=== PATIENT | female | born 1980 | race Caucasian/White ===

== ENCOUNTER 2016-09-13 12:54 | Emergency (ER) | payer MEDICAID ==
[~2016-09-13] VITALS: Ht 175.3 cm; Wt 124.4 kg
[~2016-09-13 12:54] MED LIST: ALPR1TAB PO; AMIT25TA9 PO; BACL10TA PO; CARB200T5 PO; CLON0.1T PO; ESTR1PAT77 TD; GABA-354 PO; IBUP-1724 PO; INSU100I3 SQ; INSU300I SQ; LIDO30CR23 TOP; LISI10TA7 PO; NAPR500T3 PO; OMEP40CA52 PO; OXYC-533 PO; PRED10TA PO; PREG75CA PO; QUET400T34 PO; RIZA10TA24 PO; SPIR25TA4 PO; TRAZ-173 PO; VENL150C42 PO
[2016-09-13 13:00] VITALS: Ht 175.3 cm; Wt 124.4 kg
--- OUTSIDE RECORDS SUMMARY | 2016-09-13 13:01 | XMS REPORT | Continuity of Care Document ---
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 Name Role Phone Rl Ramachandran PP Unavailable Payers Payer name Insurance type Covered democrat ID Authorization(s) Unknown Problems Condition Effective Dates (start - stop) Clinical Status Sinusitis, Acute - *Acute Bronchitis, Acute - *Acute GERD - *Chronic Depression - *Chronic Obesity - *Chronic GERD - Chronic Depression - Chronic Obesity - Chronic Diabetes Mellitus Type 2, Uncomplicated - *Chronic Diabetes Mellitus Type 2, Uncomplicated - *Poor control Issue of repeat prescriptions - *Chronic Diabetes Mellitus Type 2, Uncomplicated - *Poor control Fever - *Acute Contact dermatitis and other eczema, unspecified cause - *Acute Abdominal pain, right lower quadrant - *Acute Pharyngitis, Acute - *Acute Elevated glucose - *Chronic Elevated LFTs - *Chronic Influenza Vaccine - NEED FOR PROPHYLACTIC VACCINATION WITH COMBINED [id number] ( DTP) (DTAP) VACCINE - Carpal Tunnel Syndrome - *Chronic Pain in limb - *Chronic Wrist pain - *Chronic Hand pain, right - *Chronic Abdominal pain, generalized - Improved GERD - *Chronic Depression - *Chronic Obesity - *Chronic Chronic ulcer of unspecified site - *Chronic GERD - Chronic Depression - Chronic Obesity - Chronic Fatty liver - *Chronic Abdominal pain, right lower quadrant - *Acute Thrush - *Acute Obesity - *Chronic Nausea And Vomiting - *Acute Abdominal pain, right lower quadrant - *Acute Abdominal pain, unspecified - *Chronic Pre-diabetes - *Chronic Depression - *Chronic Other chronic nonalcoholic liver disease - *Chronic GERD - *Chronic GERD - Chronic Anxiety - *Chronic Pharyngitis, Acute - *Acute Thrush - *Acute Steatohepatitis - *Chronic Sprain of wrist, unspecified site - *Acute Depressive disorder, not elsewhere classified - *Chronic Chest wall pain - *Symptomatic Diabetes Mellitus Type 2, Uncomplicated - *Chronic GERD - *Chronic Obesity - *Chronic Chronic ulcer of unspecified site - *Chronic Other abnormal blood chemistry - Asymptomatic Candidiasis of vulva and vagina - *Symptomatic Abnormal x-ray of lung - Asymptomatic Wrist pain - *Symptomatic Depression - Chronic GERD - Chronic Obesity - Chronic Chronic ulcer of unspecified site - Chronic CLUSTER HEADACHE SYN NOS - Chronic Sprain of unspecified site of wrist - *Acute Mastitis - *Acute Depression - *Chronic Obesity - *Chronic Fatty liver disease, nonalcoholic - *Chronic Sleep Apnea - *Chronic Abdominal pain, generalized - *Chronic Family History Family Member Diagnosis Age At Onset Status Brother (Unknown) Diabetes Yes Mother (Unknown) Diabetes Yes Father (Unknown) Cancer -lung Yes Maternal grandfather (Unknown) Diabetes Yes Social History Social History Element Description Quantity alcohol Allergies, Adverse Reactions, Alerts Substance Reaction Severity Status DOXYCYCLINE Unknown SULFANILAMIDE Unknown CODEINE PHOSPHATE BREATHING DIFFICULTY Unknown SULFAMETHOXAZOLE HIVES RASH ITCHING Unknown DOXYCYCLINE HYCLATE HIVES Unknown CLINDAMYCIN HCL Unknown TRIMETHOPRIM HIVES RASH ITCHING Unknown Medications Medication Instructions Dosage Effective Dates (start - stop) Status clonidine 0.1 mg tablet take 1 tablet (0.1MG) by oral route 2 times every day 0.1 MG - No Longer Active Diflucan 150 mg tablet take 1 tablet (150MG) by oral route once 150 MG - No Longer Active Ceftin 500 mg tablet take 1 tablet (500MG) by oral route every 12 hours 500 MG - No Longer Active Accu-Chek Suzette Plus Meter Test daily fasting or 2 hours after meals dx 250.00 - Active Accu-Chek Suzette Plus strips Test daily fasting or 2 hours after meals dx 250.00 - Active Accu-Chek FastClix kit Test daily fasting or 2 hours after meals Dx 250.00 - Active Accu-Chek FastClix Test daily or 2 hours after meals dx 250.00 2012 - Active trazodone 50 mg tablet Take 2 tablets by mouth at bedtime. - Active Xanax 1 mg tablet take 1 tablet (1MG) by oral route every day as needed 1 MG - Active omeprazole 40 mg capsule,delayed release take 1 capsule (40MG) by oral route every day at bedtime 40 MG - Active clonidine 0.1 mg tablet take 1 tablet (0.1MG) by oral route every day 0.1 MG - Active Seroquel XR 400 mg tablet,extended release take 1 tablet (400MG) by oral route every day in the evening without food or with a light meal 400 MG - Active glimepiride 4 mg tablet take 1 tablet (4MG) by oral route every day 4 MG - Active Effexor XR 150 mg capsule,extended release take 1 capsule (150MG) by oral route every day 150 MG - Active tramadol 50 mg tablet take 1 - 2 Tablet (50MG) by oral route every 6 hours as needed 50 MG - Active Immunizations Vaccine Date Status Comments Flu (split) (3 yrs or older) completed Tdap (Boostrix r) completed Results Test Name Date and Time Measure Units Reference Range Abnormal Flag Comments Unknown Vital Signs Date / Time: Height Weight Pulse Rate Blood Pressure Temperature /16:05:00 68.50 in 325.00 lbs 110 /min 138/92 mm[Hg] 98.6 F Procedures Procedure Date Unknown Encounters Encounter Location Date Patient Visit [facility] Patient Visit [facility] Patient Visit [facility] Patient Visit [facility] Patient Visit [facility] Patient Visit [facility] Patient Visit [facility] Patient Visit [facility] Patient Visit [facility] Patient Visit [facility] Patient Visit [facility] Patient Visit [facility] Patient Visit [facility] Patient Visit [facility] Patient Visit [facility] Patient Visit [facility] Patient Visit [facility] Patient Visit [facility] Patient Visit [facility] Patient Visit [facility] Patient Visit [facility] Patient Visit [facility] Patient Visit [facility] Patient Visit [facility] Ortho Patient Visit [facility] Patient Visit [facility] Patient Visit [facility] Patient Visit [facility] Patient Visit [facility] Advance Directives Directive Effective Date Unknown
--- OUTSIDE RECORDS SUMMARY | 2016-09-13 13:01 | XMS REPORT | Continuity of Care Document ---
Author Author [facility] Organization [facility] Address Unknown Phone Unavailable Care Team Providers Care Contingents Supervisor Name Role Phone JENNIFER GAY MD Primary Care Physician [phone] Insurance Providers Guarantor Nora Arita Address [address] [place] [address] Email [email or web address] Payer [facility] Community Plan Policy Number [id number] Subscriber's Name Nora Arita Relationship 18 Self Effective Date 15 Expiration Date 16 Advance Directives Directive Response Recorded Date/Time Advanced Directives Type None 01/05/16 1:35pm Chief Complaint and Reason for Visit Chief Complaint General Reason for Visit Trigeminal neuralgia Problems Active Problems Medical Problem Onset Date Status Abdominal adhesions Unknown Chronic Abdominal pain, left upper quadrant Unknown Acute Abdominal pain, left upper quadrant Unknown Acute Anxiety Unknown Acute Cervical paraspinal muscle spasm Unknown Acute Chest pain Unknown Acute Constipation Unknown Acute Diabetes type 2, uncontrolled Unknown Acute Dizziness Unknown Acute Dizziness Unknown Acute Elevated LFTs Unknown Acute Elevated liver enzymes Unknown Acute Esophageal spasm Unknown Acute Gastroesophageal reflux disease with ulceration Unknown Chronic Headache Unknown Acute Hyperglycemia Unknown Acute Hyperglycemia Unknown Acute Incisional abscess Unknown Acute Left lower quadrant pain Unknown Acute Lower extremity pain Unknown Acute Migraine headache Unknown Acute Right lower quadrant abdominal pain Unknown Acute Right upper quadrant abdominal pain Unknown Acute Sacral contusion Unknown Acute Sinusitis Unknown Acute Trapezius strain Unknown Acute Trigeminal neuralgia Unknown Past Problems Medical Problem Onset Date Bronchitis Unknown Costochondritis Unknown Left knee pain Unknown Swallowing difficulty Unknown Throat pain in adult Unknown Trigeminal neuralgia of right side of face Unknown Medications Current Home Medications Medication Dose Units Route Directions Days Qty Instructions Start Date Alprazolam (Xanax) 1 Mg Tablet 1 Mg Oral Daily as needed for Anxiety 12/20/12 Amitriptyline Hcl 25 Mg Tablet 25 Mg Oral Bedtime 11/12/15 Baclofen 10 Mg Tablet 10 Mg Oral Three Times A Day as needed for Spasms 05/30/15 Carbamazepine (Epitol) 200 Mg Tablet 400 Mg Oral Three Times A Day 12/18/15 Clonidine Hcl 0.1 Mg Tablet 0.1 Mg Oral Bedtime 05/30/15 Estradiol (Estradiol Tds 0.1 Mg/Day (W)) 1 Each Patch.tdwk 1 Patch Transderm Weekly 03/30/15 Gabapentin 400 Mg Capsule 400 Mg Oral Four Times Daily 01/05/16 Ibuprofen 200 Mg Tablet 400 Mg Oral Every 4 Hours as needed for Pain 11/12/15 Insulin Aspart (Novolog Flexpen) 1 Unit Pen 80 Unit Sub-Q Three Times Daily With Meals 01/10/15 Insulin Glargine,Hum.rec.anlog (Toujeo Solostar) 300 Unit/1 Ml Insuln.pen 120 Unit Sub-Q Bedtime 05/30/15 Lidocaine/Prilocaine (Lidocaine-Prilocaine Cream) 30 Gm Cream..g. 1 Applic Topically As Needed 01/05/16 Lisinopril 10 Mg Tablet 10 Mg Oral Bedtime 02/07/15 Naproxen 500 Mg Tablet 500 Mg Oral Daily as needed for Pain 09/30 Omeprazole 40 Mg Capsule.dr 40 Mg Oral Bedtime 04/06/15 Oxycodone Hcl/Acetaminophen (Oxycodone-Acetaminophen 10-325) 10-325 Tablet 1- 2 Tab Oral Every 6 Hours as needed for Pain 01/05/16 Prednisone 10 Mg Tablet 10 Mg Oral Daily 12/31/15 Pregabalin (Lyrica) 75 Mg Capsule 225 Mg Oral Bedtime 02/07/15 Quetiapine Fumarate 400 Mg Tablet 400 Mg Oral Bedtime 06/05/14 Rizatriptan Benzoate (Maxalt) 10 Mg Tablet 10 Mg Oral As Needed 10/01/15 Spironolactone 25 Mg Tablet 25 Mg Oral Bedtime 06/05/14 Trazodone Hcl 100 Mg Tablet 300 Mg Oral Bedtime 04/06/15 Venlafaxine Hcl (Effexor Xr) 150 Mg Cap.sr.24h 300 Mg Oral Bedtime 12/20/12 Past Home Medications Medication Directions Ordered Status Alprazolam (Xanax) 0.5 Mg Tablet, 0.5 Mg Oral As Needed 11/07/09 Discontinued Amitriptyline Hcl 50 Mg Tablet, 50 Mg Oral Bedtime 04/19/11 Discontinued Citalopram Hydrobromide (Celexa) 40 Mg Tablet, 40 Mg Oral Bedtime 11/07/09 Discontinued Insulin Aspart (Novolog Flexpen) 1 Unit Pen, 8 Unit Sub-Q Three Times Daily With Meals 06/05/14 Discontinued Insulin Glargine,Hum.rec.anlog (Lantus) 100 Unit/Ml Inj, 45 Unit Sub-Q Bedtime 06/05/14 Discontinued Lisinopril 10 Mg Tablet, Unknown Dose Oral Daily 09/09/14 Discontinued Oxycodone Hcl/Acetaminophen (Percocet 5-325 Mg Tablet) 1 Each Tablet, 1-2 Tab Oral Every 4 Hours as needed for Pain 09/09/14 Discontinued Pantoprazole Sodium (Protonix) 40 Mg Tablet.dr, 40 Mg Oral Before Breakfast 09/09/14 Discontinued Quetiapine Fumarate (Seroquel) 25 Mg Tablet, 25 Mg Oral Bedtime 11/07/09 Discontinued Sucralfate 1 Gm Tablet, 1 Gm Oral Before Meals And At Bedtime 09/09/14 Discontinued Trazodone Hcl (Desyrel) 50 Mg Tablet, 50 Mg Oral Daily 07/10/11 Discontinued Social History Social History Problem Response Recorded Date/Time Onset Date Status Hx Substance Use No 01/05/2016 1:35pm Not Applicable Not Applicable Hx Alcohol Use No 01/05/2016 1:35pm Not Applicable Not Applicable Has the pt used tobacco in the last 12 months Yes 02/11/2015 6:20am Not Applicable Not Applicable Tobacco Usage smoke 05/30/2015 1:02pm Not Applicable Not Applicable Query Response Start Date Stop Date Smoking Status Current every day smoker Hospital Discharge Instructions No hospital discharge instructions. Plan of Care Discharge Date 01/05/16 3:37pm Disposition 01 DISCHARGED HOME, SELF-CARE Condition at Discharge Stable Instructions/Education Provided DI for Trigeminal Neuralgia Prescriptions See Medication Section Referrals JENNIFER GAY MD Address: [address] [place] [phone] ANGELO COWAN MD Address: [address] [place] [phone] Additional Instructions/Education Follow up with Dr. Barrientos on Tuesday as scheduled. Continue with the Percocet as prescribed. Return to ER with any new issues/concerns. Care Plan and Goals Physician Care Plan Problem:Trigeminal Neuralgia Goal: Follow up with primary care provider Instructions: Take medications and follow care plan as discussed/written Functional Status No functional status results. Allergies, Adverse Reactions, Alerts Allergen Type Severity Reaction Status Last Updated Sulfa (Sulfonamide Antibiotics) Allergy Unknown HIVES Active 12/31/15 Codeine Allergy Unknown DIFFICULTY BREATHING Active 12/31/15 Doxycycline Allergy Unknown ITCHING/RASH Active 12/31/15 Metformin Allergy Unknown NAUSEA Active 12/31/15 Liraglutide Allergy Unknown NAUSEA Active 12/31/15 Immunizations Query Response on File Recorded Date/Time Hx Influenza Vaccination Y fall 201302/07/15 4:11pm Hx Pneumococcal Vaccination No 02/07/15 4:11pm Hx Influenza Vaccination Y fall 201302/07/15 4:11pm Hx Tetanus Diptheria Y UTD PER PATIENT 04/06/15 7:37pm DTaP Vaccine History 201201/05/16 1:35pm Influenza Vaccine Hx FALL 201401/05/16 1:35pm Pneumococcal PCV13 Vaccine Hx NONE 11/12/15 5:03pm Vital Signs Acute Vital Signs Vital Response Date/Time Temperature (Fahrenheit) 98.8 deg F (96.8 - 99.1) 01/05/2016 3:37pm Temperature (Calculated Celsius) 37.45901 degrees C (36.0 - 37.3) 01/05/2016 3:37pm Pulse Rate (adult) 99 bpm (60 - 100) 01/05/2016 3:37pm Respiratory Rate 16 breaths/min (10 - 20) 01/05/2016 3:37pm O2 Sat by Pulse Oximetry 95 % (90 - 100) 01/05/2016 3:37pm Blood Pressure 164/78 mm Hg 01/05/2016 3:37pm Height (Feet) 5 feet 01/05/2016 1:35pm Height (Inches) 8.00 inches 01/05/2016 1:35pm Weight (Kilograms) 124.700 kg 01/05/2016 1:35pm Body Mass Index (BMI) 41.0 01/05/2016 1:35pm Results Laboratory Results Test Name Result Units Flags Reference Collection Date/Time Result Date/ Time Comments Carbamazepine (Tegretol) Level 7.3 ug/mL 4.0-12.0 12/31/2015 5:51pm 12:53pm Carbamazepine performed at [facility] Reference Lab, [facility] [place] [address] Trust Vault Clerk Yanna Ybarra DO Procedures Procedure Status Date Provider(s) X-RAY EXAM OF KNEE 3 Completed 11/12/15 THER/PROPH/DIAG INJ SC/IM Completed 11/12/15 THER/PROPH/DIAG INJ SC/IM Completed 11/12/15 EMERGENCY DEPT VISIT Completed 11/12/15 795893"INJECTION, KETOROLAC TROMETHAMINE, PER 15 MG" Completed 11/12/15 378287"INJECTION, ORPHENADRINE CITRATE, UP TO 60 MG" Completed 11/12/15 MRI BRAIN STEM W/O & W/DYE Completed 12/08/15 GADAVIST 10ML SDV - Contrast,Gadavist 10ml Completed 12/08/15 THER/PROPH/DIAG INJ SC/IM Completed 12/18/15 EMERGENCY DEPT VISIT Completed 12/18/15 078352"INJECTION, HYDROMORPHONE, UP TO 4 MG" Completed 12/18/15 Encounters Encounter Location Arrival/Admit Date Discharge/Depart Date Attending Provider Registered Emergency Room [facility] 01/05/16 1:32pm TEJ MATSON MD Departed Emergency Room [facility] 12/31/15 4:15pm 12/31/15 6: 30pm MISA ALVAREZ DO Departed Emergency Room [facility] 12/18/15 4:24pm 12/18/15 5: 17pm MARIO SHEIKH MD Registered Clinic [facility] 12/08/15 2:57pm DUDLEY RANGEL MD Departed Emergency Room [facility] 11/12/15 4:43pm 11/12/15 6: 48pm MISA ALVAREZ DO Recent Diagnosis
--- OUTSIDE RECORDS SUMMARY | 2016-09-13 13:01 | XMS REPORT | Continuity of Care Document ---
Author Author [facility] Organization [facility] Address Unknown Phone Unavailable Allergies Medications Problems Date Dx Coded Attending Type Code Diagnosis Diagnosed By 03/20/2012 Ham Card MD Final 354.0 CARPAL TUNNEL SYNDROME 03/20/2012 Ham Card MD 719.43 JOINT PAIN-FOREARM Procedures Results Encounters ACCT No. Visit Date/Time Discharge Status Pt. Type Provider Facility Loc./Unit Complaint [id number] 03/20/2012 10:14:00 2011 23:59:59 CLS Outpatient Ham Card MD [facility]
--- OUTSIDE RECORDS SUMMARY | 2016-09-13 13:02 | XMS REPORT | Continuity of Care Document ---
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 Role Phone Rl Ramachandran PP Unavailable Payers Payer name Insurance type Covered constitution party ID Authorization(s) Unknown Problems Condition Effective Dates (start - stop) Clinical Status Abdominal pain, right lower quadrant - *Acute Thrush - *Acute Obesity - *Chronic Pharyngitis, Acute - *Acute Elevated glucose - *Chronic Elevated LFTs - *Chronic Influenza Vaccine - Fever - *Acute Contact dermatitis and other eczema, unspecified cause - *Acute Abdominal pain, right lower quadrant - *Acute NEED FOR PROPHYLACTIC VACCINATION WITH COMBINED [id number] ( DTP) (DTAP) VACCINE - Carpal Tunnel Syndrome - *Chronic Pain in limb - *Chronic Wrist pain - *Chronic Hand pain, right - *Chronic Abdominal pain, generalized - Improved GERD - *Chronic Depression - *Chronic Obesity - *Chronic Chronic ulcer of unspecified site - *Chronic GERD - Chronic Depression - Chronic Obesity - Chronic Fatty liver - *Chronic Nausea And Vomiting - *Acute [...] Depressive disorder, not elsewhere classified - *Chronic Wrist pain - *Symptomatic Depression - Chronic [...] Dosage Effective Dates (start - stop) Status Take one 3 times daily. - Active phentermine 37.5 mg tablet take 1 tablet (37.5MG) by oral route every day before breakfast 37.5 MG - Active Diflucan 200 mg tablet take 1 tablet (200MG) by oral route every day 200 MG - Active Accu-Chek Suzette Plus Meter Test daily fasting or 2 hours after meals dx 250.00 - Active Accu-Chek Suzette Plus strips Test daily fasting or 2 hours after meals dx 250.00 - Active Accu-Chek FastClix kit Test daily fasting or 2 hours after meals Dx 250.00 - Active Accu-Chek FastClix Test daily or 2 hours after meals dx 250.00 2012 - Active Effexor XR 150 mg capsule,extended release take 1 capsule (150MG) by oral route every day 150 MG - Active omeprazole 40 mg capsule,delayed release take 1 capsule (40MG) by oral route every day at bedtime 40 MG - Active Xanax 1 mg tablet take 1 tablet (1MG) by oral route every day as needed 1 MG - Active naproxen 500 mg tablet take 1 tablet (500MG) by oral route 2 times every day with food 500 MG - Active trazodone 50 mg tablet Take 2 tablets by mouth at bedtime. - Active tramadol 50 mg tablet take [...] Height Weight Pulse Rate Blood Pressure Temperature /15:04:00 69.00 in 322.00 lbs 96 /min 144/100 mm[Hg] 98.0 F Procedures Procedure Date Unknown Encounters Encounter Location Date Patient Visit [facility] Patient Visit [facility] Patient Visit [facility] Patient Visit [facility] Patient Visit [facility] Patient Visit [facility] Patient [facility] Patient Visit [facility] Patient Visit [facility] Patient [facility] Patient [facility] Patient Visit [facility] Patient [facility] Patient [facility] Patient [facility] Patient [facility] Patient Visit [facility] Patient Visit [facility] Patient Visit [facility] Patient Visit [facility] Ortho Patient Visit [facility] Patient Visit [facility] Patient Visit [facility] Patient Visit [facility] Patient Visit [facility] Advance Directives Directive Effective Date Unknown
--- OUTSIDE RECORDS SUMMARY | 2016-09-13 13:02 | XMS REPORT | Continuity of Care Document ---
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 Name Role Phone JENNIFER GAY MD Primary Care Physician [phone] Insurance Providers Guarantor Nora Arita [address] [place] [address] Email [email or web address] Payer [facility] Community Plan Policy Number [id number] Subscriber's Name Nora Arita Relationship 18 Self Effective Date 15 Expiration Date 15 Advance Directives Directive Response Recorded Date/Time Advanced Directives Type None 09/18/15 5:08pm Chief Complaint and Reason for Visit Chief Complaint Chest Pain Reason for Visit [id number] Bronchitis Problems Active Problems Medical Problem Onset Date [...] Sinusitis Unknown Acute Trapezius strain Unknown Acute Past Problems Medical Problem Onset Date Bronchitis Unknown Costochondritis Unknown Medications Current Home Medications Medication Dose Units Route Directions Days Qty Instructions Start Date Alprazolam (Xanax) 1 Mg Tablet 1 Mg Oral Daily as needed for Anxiety 12/20/12 Amitriptyline Hcl 25 Mg Tablet 25 Mg Oral Bedtime 09/18/15 Azithromycin 250 Mg Tablet 1 Tab Oral Daily 6 Tablet TAKE TWO TABLETS ON DAY ONE, THEN ONE TABLET DAILY UNTIL ALL TAKEN. 09/18/15 Baclofen 10 Mg Tablet 10 Mg Oral Three Times A Day 05/30/15 Clonidine Hcl 0.1 Mg Tablet 0.1 Mg Oral Bedtime 05/30/15 Estradiol (Estradiol Tds 0.1 Mg/Day (W)) 1 Each Patch.tdwk 1 Patch Transderm Weekly 03/30/15 Famotidine 20 Mg Tablet 40 Mg Oral Daily 09/18/15 Hydrocodone/Acetaminophen ([place] 5-325 Tablet) 1 Each Tablet 1 Tab Oral Four Times Daily as needed for Cough/Pain 15 09/18/15 Insulin Aspart (Novolog Flexpen) 1 Unit Pen 80 Unit Sub-Q Three Times Daily With Meals 01/10/15 Insulin Glargine,Hum.rec.anlog (Touosman Solbernardo) 300 Unit/1 Ml Insuln.pen 114 Unit Sub-Q Bedtime 05/30/15 Lisinopril 10 Mg Tablet 10 Mg Oral Bedtime 02/07/15 Mupirocin 22 Gm Oint...g. 1 Applic Topically As Needed 03/30/15 Omeprazole 40 Mg Capsule. 40 Mg Oral Daily 04/06/15 Pantoprazole Sodium 40 Mg Tablet.dr 40 Mg Oral Daily 03/30/15 Pregabalin (Lyrica) 75 Mg Capsule 225 Mg Oral Bedtime 02/07/15 Prochlorperazine Maleate 10 Mg Tablet 10 Mg Oral Three Times A Day as needed for Nausea 09/18/15 Promethazine Hcl/Codeine (Promethazine-Codeine Syrup) 118 Ml Syrup 5-10 Ml Oral Every 6 Hours as needed for Cough 120 Milliliter 09/18/15 Quetiapine Fumarate 400 Mg Tablet 400 Mg Oral Bedtime 06/05/14 Rizatriptan Benzoate (Rizatriptan) 10 Mg Tablet 10 Mg Oral Daily as needed for Migraine Headache 09/18/15 Spironolactone 25 Mg Tablet 25 Mg Oral [...] Onset Date Status Hx Substance Use No 09/18/2015 5:28pm Not Applicable Not Applicable Hx Alcohol Use No 09/18/2015 5:28pm Not Applicable Not Applicable Has the pt used tobacco in the last 12 months Yes 02/11/2015 6:20am Not Applicable Not Applicable Tobacco Usage smoke 05/30/2015 1:02pm Not Applicable Not Applicable Query Response Start Date Stop Date Smoking Status Current every day smoker Hospital Discharge Instructions No hospital discharge instructions. Plan of Care Discharge Date 09/18/15 8:05pm Disposition 01 DISCHARGED HOME, SELF-CARE Condition at Discharge Stable Instructions/Education Provided Acute Bronchitis DI for Costochondritis Prescriptions See Medication Section Referrals JENNIFER GAY MD Address: [address] [facility] [place] [address] [phone] Note: ANGELO COWAN MD Order Date: 1 Week Address: [address] [place] [address] [place] [phone] Note: Additional Instructions/Education Your chest pain is most likely associated with your cough and irritation of the chest wall muscles. No evidence of heart problem or other life threatening condition. Will treat with antibiotics and cough meds and have you follow up with your doctor. You may also try moist heat to your chest. Try Ibuprofen 600-800 mg every 6 hours for chest pain. May supplement with the norco that you have left over at home. Care Plan and Goals Physician Care Plan Problem:bronchitis with costochondritis Goal: Follow up with primary care provider Instructions: Take medications and follow care plan as discussed/written Functional Status No functional status results. Allergies, Adverse Reactions, Alerts Allergen Type Severity Reaction Status Last Updated Sulfa (Sulfonamide Antibiotics) Allergy Unknown HIVES Active 09/18/15 Codeine Allergy Unknown DIFFICULTY BREATHING Active 09/18/15 Doxycycline Allergy Unknown ITCHING/RASH Active 09/18/15 Immunizations Query Response on File Recorded Date/Time Hx Influenza Vaccination Y fall 201302/07/15 4:11pm Hx Pneumococcal Vaccination No 02/07/15 4:11pm Hx Influenza Vaccination Y fall 201302/07/15 4:11pm Hx Tetanus Diptheria Y UTD PER PATIENT 04/06/15 7:37pm Influenza Vaccine Hx 03/201509/18/15 5:28pm Vital Signs Acute Vital Signs Vital Response Date/Time Temperature (Fahrenheit) 98.1 deg F (96.8 - 99.1) 09/18/2015 8:05pm Temperature (Calculated Celsius) 36.78295 degrees C (36.0 - 37.3) 09/18/2015 8:05pm Pulse Rate (adult) 88 bpm (60 - 100) 09/18/2015 8:05pm Respiratory Rate 16 breaths/min (10 - 20) 09/18/2015 8:05pm O2 Sat by Pulse Oximetry 98 % (90 - 100) 09/18/2015 8:05pm Blood Pressure 145/78 mm Hg 09/18/2015 8:05pm Height (Feet) 5 feet 09/18/2015 5:08pm Height (Inches) 8.00 inches 09/18/2015 5:08pm Weight (Kilograms) 126.800 kg 09/18/2015 5:08pm Body Mass Index (BMI) 42.0 09/18/2015 5:08pm Results Laboratory Results Test Name Result Units Flags Reference Collection Date/Time Result Date/ Time Comments Total Bilirubin 0.60 MG/DL 0.20-1.30 07/10/2015 7:43pm 07/10/2015 7: 58pm Alkaline Phosphatase 179 U/L H 38-126 07/10/2015 7:43pm 07/10/2015 7: 58pm Total Protein 8.6 G/DL H 6.3-8.2 07/10/2015 7:43pm 07/10/2015 7:58pm Albumin 4.5 G/DL 3.5-5.0 07/10/2015 7:43pm 07/10/2015 7:58pm Globulin 4.1 G/DL H 2.4-3.6 07/10/2015 7:43pm 07/10/2015 7:58pm Albumin/Globulin Ratio 1.1 RATIO 1.1-2.2 07/10/2015 7:43pm 07/10/2015 7 :58pm Aspartate Amino Transf (AST/SGOT) 87 U/L H 14-36 07/10/2015 7:43pm 07/09 7:58pm Alanine Aminotransferase (ALT/SGPT) 109 U/L H 9-52 07/10/2015 7:43pm 07/2015 7:58pm Troponin I < 0.012 ng/ml 0-0.12 07/10/2015 7:43pm 07/10/2015 8:09pm Troponin values with a difference of 55% increase from orginal troponin value represent a true biological DELTA value. (%increase Calc=Orginal Troponin value, divided by subsequent Troponin value, multiplied by 100) Lipase 152 U/L 23-300 07/10/2015 7:43pm 07/10/2015 7:58pm Oxygen Delivery Method (LAB) ROOM AIR 07/10/2015 7:43pm 07/10/2015 7:51pm Venous Blood pH 7.430 H 7.31-7.41 07/10/2015 7:43pm 07/10/2015 7:51pm Venous Blood Partial Pressure CO2 40 MMHG 40-52 07/10/2015 7:43pm 07/09 7:51pm Venous Blood Partial Pressure O2 72 MMHG H 40-52 07/10/2015 7:43pm 07/09 7:51pm Venous Blood HCO3 27 MEQ/L H 22-26 07/10/2015 7:43pm 07/10/2015 7:51pm Venous Blood Total Carbon Dioxide 27.7 MEQ/L 07/10/2015 7:43pm 2015 7:51pm Venous Blood Base Excess 2.0 MMOL/L -2.0-2.0 07/10/2015 7:43pm 2015 7:51pm Venous Blood Oxygen Saturation 95.0 % 07/10/2015 7:43pm 07/10/2015 7: 51pm White Blood Count 7.0 T/MM3 4.5-11.0 09/18/2015 5:pm 09/18/2015 6: 08pm Red Blood Count 4.69 M/MM3 4.00-5.20 09/18/2015 5:pm 09/18/2015 6: 08pm Hemoglobin 15.2 GM/DL 12-16 09/18/2015 5:09/18/2015 6:08pm Hematocrit 43.5 % 36-46 09/18/2015 5:09/18/2015 6:08pm Mean Corpuscular Volume 92.8 UM3 80-100 09/18/2015 5:09/18/2015 6: 08pm Mean Corpuscular Hemoglobin 32.4 UUG 26-34 09/18/2015 5:2015 6:08pm Mean Corpuscular Hemoglobin Concent 34.9 GM/DL 31-37 09/18/2015 5:09/18/2015 6:08pm RDW Standard Deviation 40.9 FL 36.9-50.2 09/18/2015 5:09/18/2015 6 :08pm Platelet Count 149 T/MM3 130-400 09/18/2015 5:09/18/2015 6:08pm Mean Platelet Volume 13.1 UM3 H 9.4-12.4 09/18/2015 5:09/18/2015 6: 08pm Neutrophils % (Manual) 48.0 % 33-66 09/18/2015 5:09/18/2015 6: 13pm Lymphocytes % (Manual) 43.0 % 23-45 09/18/2015 5:09/18/2015 6: 13pm Monocytes % (Manual) 3.0 % 0-9.0 09/18/2015 5:09/18/2015 6:13pm Eosinophils % (Manual) 2.0 % 0-4 09/18/2015 5:09/18/2015 6:13pm Basophils % (Manual) 2.0 % 0-2 09/18/2015 5:09/18/2015 6:13pm Reactive Lymphocytes % 2.0 % H 0-0 09/18/2015 5:09/18/2015 6:13pm Absolute Neutrophils (Manual) 3.4 T/MM3 1.8-7.7 09/18/2015 5:09/17 6:13pm Lymphocytes # (Manual) 3.0 T/MM3 1-4.8 09/18/2015 5:09/18/2015 6: 13pm Monocytes # (Manual) 0.2 T/MM3 0-0.8 09/18/2015 5:09/18/2015 6: 13pm Eosinophils # (Manual) 0.1 T/MM3 0-0.5 09/18/2015 5:09/18/2015 6: 13pm Basophils # (Manual) 0.1 T/MM3 0-0.2 09/18/2015 5:09/18/2015 6: 13pm Reactive Lymphocytes # 0.1 T/MM3 H 0-0 09/18/2015 5:09/18/2015 6: 13pm Red Cell Morphology Comment NORMAL 09/18/2015 5:09/18/2015 6: 13pm D-Dimer 164 NG/ML 0-230 09/18/2015 5:09/18/2015 5:58pm <230 NG/ ML D-DU=PRESUMPTIVE NEGATIVE FOR PE OR DVT >230 NG/ML D-DU=ADDITIONAL EVAL FOR PE OR DVT RECOMMENDED Icterus Index < 2 0-7 09/18/2015 5:09/18/2015 6:00pm Chemistry Specimen Hemolysis 43 H 0-25 09/18/2015 5:09/18/2015 6: 00pm 26-70: Specimen Exhibited Slight Hemolysis - can falsely elevate K (Potassium) and Urine Protein. Turbidity 101 H 0-20 09/18/2015 5:09/18/2015 6:00pm 0-21: Turbidity not present. 22-999: Turbidity present - Gross turbidity can falsely decrease Lipase and Triglycerides. Sodium Level 137 MEQ/L 134-144 09/18/2015 5:09/18/2015 6:00pm Potassium Level 4.1 MEQ/L 3.6-5 09/18/2015 5:09/18/2015 6:00pm Chloride Level 103 MEQ/L 98-107 09/18/2015 5:09/18/2015 6:00pm Carbon Dioxide Level 20 MEQ/L L 22-30 09/18/2015 5:09/18/2015 6: 00pm Anion Gap 14 MEQ/L 5-15 09/18/2015 5:09/18/2015 6:00pm Blood Urea Nitrogen 8.0 MG/DL 7-17 09/18/2015 5:09/18/2015 6:00pm Creatinine 0.5 MG/DL L 0.7-1.2 09/18/2015 5:09/18/2015 6:00pm BUN/Creatinine Ratio 16 RATIO 6-09/18/2015 5:09/18/2015 6:00pm Glomerular Filtration Rate Calc 139 09/18/2015 5:09/18/2015 6: 00pm Glucose Level 361 MG/DL H 65-110 09/18/2015 5:09/18/2015 6:00pm Calculated Osmolality 277 MOSM/KG 261-280 09/18/2015 5:09/18/2015 6:00pm Calcium Level 9.1 MG/DL 8.4-10.2 09/18/2015 5:09/18/2015 6:00pm Plasma Lactate 2.0 MMOL/L 0.6-2.2 09/18/2015 6:pm 09/18/2015 6:26pm Microbiology Results Procedure Source Organism/Result Collection Date/Time Result Date/Time Result Status Blood Culture Peripheral/Iv Start CULTURE INITIATED - RESULTS PENDING 09/17 6:13pm 09/18/2015 6:16pm Preliminary Procedures Procedure Status Date Provider(s) ROUTINE VENIPUNCTURE Completed 07/10/15 CHEST X-RAY 1 VIEW FRONTAL Completed 07/10/15 COMPREHEN METABOLIC PANEL Completed 07/10/15 BLOOD GASES ANY COMBINATION Completed 07/10/15 ASSAY OF LIPASE Completed 07/10/15 ASSAY OF TROPONIN QUANT Completed 07/10/15 BL SMEAR W/DIFF WBC COUNT Completed 07/10/15 COMPLETE CBC AUTOMATED Completed 07/10/15 ELECTROCARDIOGRAM TRACING Completed 07/10/15 THER/PROPH/DIAG INJ IV PUSH Completed 07/10/15 TX/PRO/DX INJ NEW DRUG ADDON Completed 07/10/15 EMERGENCY DEPT VISIT Completed 07/10/15 290106"INJECTION, PROCHLORPERAZINE, UP TO 10 MG" Completed 07/10/15 Encounters Encounter Location Arrival/Admit Date Discharge/Depart Date Attending Provider Departed Emergency Room [facility] 09/18/15 5:08pm 09/18/15 8: 05pm TERRANCE PRINCE MD Departed Emergency Room [facility] 07/10/15 7:12pm 07/10/15 9: 10pm АННА ANDREWS MD Recent Diagnosis
--- OUTSIDE RECORDS SUMMARY | 2016-09-13 13:02 | XMS REPORT | Continuity of Care Document ---
Author Author Dewayne Prescott MA Ambulatory Address [address] [place] [id number] Phone Unavailable Care Team Providers Care Kalsominer Name Role Phone Rl Ramachandran PP Unavailable Payers Payer name Insurance type Covered democrat ID Authorization(s) Unknown Problems Condition Effective Dates (start - stop) Clinical Status Abdominal pain, unspecified - *Chronic Pre-diabetes - *Chronic Depression - *Chronic Other chronic nonalcoholic liver disease - *Chronic GERD - *Chronic GERD - Chronic Anxiety - *Chronic Pharyngitis, Acute - *Acute Elevated glucose - *Chronic Elevated LFTs - *Chronic Influenza Vaccine - Abdominal pain, right lower quadrant - *Acute Thrush - *Acute Obesity - *Chronic Fever - *Acute Contact dermatitis and other eczema, unspecified cause - *Acute Abdominal pain, right lower quadrant - *Acute NEED FOR PROPHYLACTIC VACCINATION WITH COMBINED [id number] ( DTP) (DTAP) VACCINE - Carpal Tunnel [...] quadrant - *Acute Pharyngitis, Acute - *Acute Thrush - *Acute [...] Dosage Effective Dates (start - stop) Status Effexor XR 150 mg capsule,extended release take 1 capsule (150MG) by oral route every day 150 MG - No Longer Active Diflucan 200 mg tablet take 1 tablet (200MG) by oral route every day 200 MG - Active Accu-Chek Suzette Plus Meter Test daily fasting or 2 hours after meals dx 250.00 - Active Accu-Chek Suzette Plus Strips Test daily fasting or 2 hours after meals dx 250.00 - Active Accu-Chek FastClix Kit Test daily fasting or 2 hours after [...] day with food 500 MG - Active Take one 3 times daily. - Active phentermine 37.5 mg tablet take 1 tablet (37.5MG) by oral route every day before breakfast 37.5 MG - Active trazodone 50 mg tablet [...] Height Weight Pulse Rate Blood Pressure Temperature /08:30:00 69.00 in 320.00 lbs 88 /min 144/94 mm[Hg] 982.0 F Procedures Procedure Date Unknown Encounters Encounter Location Date Patient Visit [facility] Patient Visit [facility] Patient Visit [facility] Patient Visit [facility] Patient Visit [facility] Patient Visit [facility] Patient Visit [facility] Patient Visit [facility] Patient Visit [facility] Patient Visit [facility] Patient Visit [facility] Patient Visit [facility] Patient Visit [facility] Patient Visit [facility] Patient Visit [facility] New FM Patient Visit [facility] New FM [facility] Patient Visit [facility] New Surg Patient Visit [facility] New FM Patient Visit [facility] Ortho Patient Visit [facility] New Patient Visit [facility] New Patient Visit [facility] New Patient Visit [facility] Patient Visit [facility] Advance Directives Directive Effective Date Unknown
--- OUTSIDE RECORDS SUMMARY | 2016-09-13 13:02 | XMS REPORT | Continuity of Care Document ---
Author Author [facility] Organization [facility] Address Unknown Phone Unavailable Care Team Providers Care City Clerk Name Role Phone JENNIFER GAY MD Primary Care Physician [phone] Insurance Providers Guarantor Nora Arita Address [address] [place] [address] Email [email or web address] Payer [facility] Community Plan Policy Number [id number] Subscriber's Name Nora Arita Relationship 18 Self Effective Date 15 Expiration Date 16 Advance Directives Directive Response Recorded Date/Time Advanced Directives Type None 12/31/15 4:18pm Chief Complaint and Reason for Visit Chief [...] Spasms 05/30/15 Carbamazepine (Epitol) 200 Mg Tablet 200 Mg Oral Every Morning Carbamazepine (Epitol) 200 Mg Tablet 400 Mg Oral Bedtime 12/18/15 Clonidine Hcl 0.1 Mg Tablet 0.1 Mg Oral Bedtime 05/30/15 Estradiol (Estradiol Tds 0.1 Mg/Day (W)) 1 Each Patch.tdwk 1 Patch Transderm Weekly 03/30/15 Ibuprofen 200 Mg Tablet 400 Mg Oral Every 4 Hours as needed for Pain 11/12/15 Insulin Aspart (Novolog Flexpen) 1 Unit Pen 60 Unit Sub-Q Three Times Daily With Meals 01/10/15 Insulin Glargine,Hum.rec.anlog (Toujeo Solostar) 300 Unit/1 Ml Insuln.pen 120 Unit Sub-Q Bedtime 05/30/15 Lisinopril 10 Mg Tablet 10 Mg Oral Bedtime 02/07/15 Naproxen 500 Mg Tablet 500 Mg Oral Daily as needed for Pain 09/30 Omeprazole 40 Mg Capsule.dr 40 Mg Oral Bedtime 04/06/15 Oxycodone Hcl/Acetaminophen (Oxycodon-Acetaminophen 7.5-325) 7.5-325 Tablet 1- 2 Tab Oral Every 4-6 Hours as needed for Pain 12/18/15 Prednisone 10 Mg Tablet 10 Mg Oral [...] Onset Date Status Hx Substance Use No 12/31/2015 4:30pm Not Applicable Not Applicable Hx Alcohol Use No 12/31/2015 4:30pm Not Applicable Not Applicable Has the pt used tobacco in the last 12 months Yes 02/11/2015 6:20am Not Applicable Not Applicable Tobacco Usage smoke 05/30/2015 1:02pm Not Applicable Not Applicable Query Response Start Date Stop Date Smoking Status Current every day smoker Hospital Discharge Instructions No hospital discharge instructions. Plan of Care Discharge Date 12/31/15 6:30pm Disposition 01 DISCHARGED HOME, SELF-CARE Condition at Discharge Improved Instructions/Education Provided Trigeminal Neuralgia Prescriptions See Medication Section Referrals JENNIFER GAY MD Address: [address] [place] [address] [address] ROJAS [address] [place] [address], [place] [phone] Note: ANGELO OCWAN MD Order Date: 3 Days Address: [address] [place] [phone] Note: Additional Instructions/Education Take your home meds as prescribed. Follow up with Dr. Cowan. Care Plan and Goals Physician Care Plan Problem: Trigeminal neuralgia Goal: Follow up with primary care provider [...] PER PATIENT 04/06/15 7:37pm DTaP Vaccine History 201212/31/15 4:30pm Influenza Vaccine Hx FALL 201412/31/15 4:30pm Pneumococcal PCV13 Vaccine Hx NONE 11/12/15 5:03pm Vital Signs Acute Vital Signs Vital Response Date/Time Temperature (Fahrenheit) 99.0 deg F (96.8 - 99.1) 12/31/2015 5:48pm Temperature (Calculated Celsius) 37.31886 degrees C (36.0 - 37.3) 12/31/2015 5:48pm Pulse Rate (adult) 108 bpm (60 - 100) 12/31/2015 6:30pm Respiratory Rate 19 breaths/min (10 - 20) 12/31/2015 6:30pm O2 Sat by Pulse Oximetry 95 % (90 - 100) 12/31/2015 6:30pm Blood Pressure 151/70 mm Hg 12/31/2015 6:30pm Height (Feet) 5 feet 12/31/2015 4:18pm Height (Inches) 8.00 inches 12/31/2015 4:18pm Weight (Kilograms) 122.200 kg 12/31/2015 4:18pm Body Mass Index (BMI) 40.0 12/31/2015 4:18pm Results No known relevant diagnostic tests, laboratory data and/or discharge summary. Procedures Procedure Status Date Provider(s) X-RAY EXAM OF KNEE 3 Completed 11/12/15 THER/PROPH/DIAG INJ SC/IM Completed 11/12/15 THER/PROPH/DIAG INJ SC/IM Completed 11/12/15 EMERGENCY DEPT VISIT Completed 11/12/15 862957"INJECTION, KETOROLAC TROMETHAMINE, PER 15 MG" Completed 11/12/15 329884"INJECTION, ORPHENADRINE CITRATE, UP TO 60 MG" Completed 11/12/15 MRI BRAIN STEM W/O & W/DYE Completed 12/08/15 GADAVIST 10ML SDV - Contrast,Gadavist 10ml Completed 12/08/15 THER/PROPH/DIAG INJ SC/IM Completed 12/18/15 EMERGENCY DEPT VISIT Completed 12/18/15 [id number]"INJECTION, HYDROMORPHONE, UP TO 4 MG" Completed 12/18/15 Encounters Encounter Location Arrival/Admit Date Discharge/Depart Date Attending Provider Departed Emergency Room [facility] 12/31/15 4:15pm 12/31/15 6: 30pm MISA ALVAREZ DO Departed Emergency Room [facility] 12/18/15 4:24pm 12/18/15 5: 17pm MARIO SHEIKH MD Registered Clinic [facility] 12/08/15 2:57pm DUDLEY RANGEL MD Departed Emergency Room [facility] 11/12/15 4:43pm 11/12/15 6: 48pm MISA ALVAREZ DO Recent Diagnosis
--- OUTSIDE RECORDS SUMMARY | 2016-09-13 13:02 | XMS REPORT | Continuity of Care Document ---
Author Author Rachel Cain PharmD Ambulatory Address [address] [place] [address] Phone Care Team Providers Care Nailing Machine Operator Automatic Name Role Phone Rl Ramachandran PP Unavailable Payers Payer name Insurance type Covered alliance party ID Authorization(s) Unknown Problems Condition Effective Dates (start - stop) Clinical Status GERD - *Chronic Depression - *Chronic Obesity - *Chronic GERD - Chronic Depression - Chronic Obesity - Chronic Diabetes Mellitus Type 2, Uncomplicated - *Chronic Sinusitis, Acute - *Acute Bronchitis, Acute - *Acute Diabetes Mellitus Type 2, Uncomplicated - *Poor control Issue of repeat prescriptions - *Chronic Diabetes Mellitus Type 2, Uncomplicated - *Poor control Fever - *Acute Contact dermatitis and other eczema, unspecified cause - *Acute Abdominal pain, right lower quadrant - *Acute Pharyngitis, Acute - *Acute Elevated glucose - *Chronic Elevated LFTs - *Chronic Influenza Vaccine - NEED FOR PROPHYLACTIC VACCINATION WITH COMBINED [id number] ( DTP) (DTAP) VACCINE - Carpal Tunnel [...] Dosage Effective Dates (start - stop) Status Xanax 1 mg tablet take 1 tablet (1MG) by oral route every day as needed 1 MG - Active Diflucan 150 mg tablet take 1 tablet (150MG) by oral route once 150 MG - No Longer Active tramadol 50 mg tablet take 1 - 2 Tablet (50MG) by oral route every 6 hours as needed 50 MG - No Longer Active Accu-Chek Suzette [...] tablets by mouth at bedtime. - Active Ceftin 500 mg tablet take 1 tablet (500MG) by oral route every 12 hours 500 MG - Active Diflucan 150 mg tablet take 1 tablet (150MG) by oral route once 150 MG - Active omeprazole 40 mg [...] hours as needed 50 MG - Active Bentyl 10 mg capsule take 1 capsule (10MG) by oral route 3 times every day as needed 10 MG - Active Immunizations Vaccine Date Status Comments Flu (split) (3 yrs or older) completed Tdap (Boostrix r) completed Results Test Name Date and Time Measure Units Reference Range Abnormal Flag Comments Unknown Vital Signs Date / Time: Height Weight Pulse Rate Blood Pressure Temperature /13:47:00 69.00 in 325.80 lbs 76 /min 128/72 mm[Hg] 98.4 F Procedures Procedure Date Unknown Encounters Encounter Location Date Patient Visit [facility] Patient Visit [facility] Patient Visit [facility] Patient Visit [facility] Patient [facility] Patient Visit [facility] Patient Visit [facility] Patient Visit [facility] Patient Visit [facility] Patient [facility] Patient [facility] Patient Visit [facility] Surg Patient Visit [facility] Patient Visit [facility] Ortho Patient Visit [facility] Patient Visit [facility] Patient Visit [facility] Patient Visit [facility] Patient Visit [facility] Advance Directives Directive Effective Date Unknown
--- OUTSIDE RECORDS SUMMARY | 2016-09-13 13:02 | XMS REPORT | Continuity of Care Document ---
Author Author [facility] Organization [facility] Address Unknown Phone Unavailable Care Team Providers Care Slat Pickler Name Role Phone JENNIFER GAY MD Primary Care Physician [phone] Insurance Providers Guarantor Nora Arita Address [address] [place] [address] Email [email or web address] [facility] Community Plan Policy Number [id number] Subscriber's Name Nora Arita Relationship 18 Self Effective Date 15 Expiration Date 15 Advance Directives Directive Response Recorded Date/Time Advanced Directives Type None 11/12/15 4:47pm Chief Complaint and Reason for Visit Chief Complaint Lower Extremity Pain Reason for Visit Left knee pain Problems Active Problems Medical Problem Onset Date [...] difficulty Unknown Throat pain in adult Unknown Medications Current Home Medications Medication Dose Units Route Directions Days Qty Instructions Start Date Alprazolam (Xanax) 1 Mg Tablet 1 Mg Oral Daily as needed for Anxiety 12/20/12 Amitriptyline Hcl 25 Mg Tablet 25 Mg Oral Bedtime 11/12/15 Baclofen 10 Mg Tablet 10 Mg Oral Three Times A Day as needed for Spasms 05/30/15 Clonidine Hcl 0.1 Mg Tablet 0.1 Mg Oral Bedtime 05/30/15 Estradiol (Estradiol Tds 0.1 Mg/Day (W)) 1 Each Patch.tdwk 1 Patch Transderm Weekly 03/30/15 Fluconazole 200 Mg Tablet 200 Mg Oral Daily 14 Tablet 10/01/15 Ibuprofen 200 Mg Tablet 2 Tab Oral Every 4 Hours as needed for Pain 11/12/15 Insulin Aspart (Novolog Flexpen) 1 Unit Pen 60 Unit Sub-Q Three Times Daily With Meals 01/10/15 Insulin Glargine,Hum.rec.anlog (Touosman Solbernardo) 300 Unit/1 Ml Insuln.pen 120 Unit Sub-Q Bedtime 05/30/15 Lisinopril 10 Mg Tablet 10 Mg Oral Bedtime 02/07/15 Meloxicam (Mobic) 7.5 Mg Tablet 1 Tab Oral Daily 7 DO NOT TAKE OTHER NSAIDS - aspirin, ibuprofen while taking this medication 11/12/15 Naproxen 500 Mg Tablet 500 Mg Oral Daily as needed for Pain 09/30 Omeprazole 40 Mg Capsule.dr 40 Mg Oral Bedtime 04/06/15 Pregabalin (Lyrica) 75 Mg Capsule 225 Mg [...] Mg Tablet, 0.5 Mg Oral As Needed 07/02/10 Discontinued Amitriptyline Hcl 50 Mg Tablet, 50 [...] Problem Response Recorded Date/Time Onset Date Status Chewing Tobacco Status No 11/12/2015 4:47pm Not Applicable Not Applicable Hx Substance Use No 11/12/2015 4:47pm Not Applicable Not Applicable Hx Alcohol Use No 11/12/2015 4:47pm Not Applicable Not Applicable Has the pt used tobacco in the last 12 months Yes 02/11/2015 6:20am Not Applicable Not Applicable Tobacco Usage smoke 05/30/2015 1:02pm Not Applicable Not Applicable Query Response Start Date Stop Date Smoking Status Current every day smoker Hospital Discharge Instructions No hospital discharge instructions. Plan of Care Discharge Date 11/12/15 6:48pm Disposition 01 DISCHARGED HOME, SELF-CARE Condition at Discharge Stable Instructions/Education Provided DI for Knee Pain How to Quit Smoking Prescriptions See Medication Section Referrals JENNIFER GAY MD Address: [address] [place] [phone] ANGELO COWAN MD Address: [address] [place] [phone] Additional Instructions/Education Home to rest - left knee xray looks normal - no evidence of arthritis to left knee - use ice/heat to knee for discomfort - and gentle range of motion exercises to prevent stiffness. Mobic as ordered for discomfort - please follow up with PCP for further evaluation if concerns/pain persists - may need reimaging or evaluation for a bakers cyst in the near future. May purchase crutches from local drug store if needed. Care Plan and Goals Physician Care Plan Problem: Left knee pain Goal: Follow up with primary care provider Instructions: Take medications and follow care plan as discussed/written Functional Status No functional status results. Allergies, Adverse Reactions, Alerts Allergen Type Severity Reaction Status Last Updated Sulfa (Sulfonamide Antibiotics) Allergy Unknown HIVES Active 11/12/15 Codeine Allergy Unknown DIFFICULTY BREATHING Active 11/12/15 Doxycycline Allergy Unknown ITCHING/RASH Active 11/12/15 Metformin Allergy Unknown NAUSEA Active 11/12/15 Liraglutide Allergy Unknown NAUSEA Active 11/12/15 Immunizations Query Response on File Recorded Date/Time Hx Influenza Vaccination Y fall 201302/07/15 4:11pm Hx Pneumococcal Vaccination No 02/07/15 4:11pm Hx Influenza Vaccination Y fall 201302/07/15 4:11pm Hx Tetanus Diptheria Y UTD PER PATIENT 04/06/15 7:37pm Influenza Vaccine Hx 2015 11/12/15 5:03pm Pneumococcal PCV13 Vaccine Hx NONE 11/12/15 5:03pm Vital Signs Acute Vital Signs Vital Response Date/Time Temperature (Fahrenheit) 99.1 deg F (96.8 - 99.1) 11/12/2015 6:48pm Temperature (Calculated Celsius) 37.96940 degrees C (36.0 - 37.3) 11/12/2015 6:48pm Pulse Rate (adult) 94 bpm (60 - 100) 11/12/2015 6:48pm Respiratory Rate 20 breaths/min (10 - 20) 11/12/2015 6:48pm O2 Sat by Pulse Oximetry 96 % (90 - 100) 11/12/2015 6:48pm Blood Pressure 126/67 mm Hg 11/12/2015 6:48pm Height (Feet) 5 feet 11/12/2015 4:47pm Height (Inches) 8.00 inches 11/12/2015 4:47pm Weight (Kilograms) 123.000 kg 11/12/2015 4:47pm Body Mass Index (BMI) 41.0 11/12/2015 4:47pm Results Laboratory Results Test Name Result Units Flags Reference Collection Date/Time Result Date/ Time Comments White Blood Count 7.0 T/MM3 4.5-11.0 09/18/2015 5:09/18/2015 6: 08pm Red Blood Count 4.69 M/MM3 4.00-5.20 09/18/2015 5:09/18/2015 6: 08pm Hemoglobin 15.2 GM/DL 12-16 09/18/2015 [...] Lymphocytes % 2.0 % H 0-0 09/18/2015 5:pm 09/18/2015 6:13pm Absolute Neutrophils (Manual) 3.4 T/MM3 1.8-7.7 09/18/2015 5:28pm 09/17 6:13pm Lymphocytes # (Manual) 3.0 T/MM3 1-4.8 09/18/2015 5:pm 09/18/2015 6: 13pm Monocytes # (Manual) 0.2 T/MM3 0-0.8 09/18/2015 5:pm 09/18/2015 6: 13pm Eosinophils # (Manual) 0.1 T/MM3 0-0.5 09/18/2015 5:28pm 09/18/2015 6: 13pm Basophils # (Manual) 0.1 T/MM3 0-0.2 09/18/2015 5:pm 09/18/2015 6: 13pm Reactive Lymphocytes # 0.1 T/MM3 H 0-0 09/18/2015 5:pm 09/18/2015 6: 13pm Red Cell Morphology Comment NORMAL [...] Urine Protein. Turbidity 101 H 0-20 09/18/2015 5:pm 09/18/2015 6:00pm 0-21: Turbidity not present. 22-999: Turbidity present - Gross turbidity can falsely decrease Lipase and Triglycerides. Sodium Level 137 MEQ/L 134-144 09/18/2015 5:28pm 09/18/2015 6:00pm Potassium Level 4.1 MEQ/L 3.6-5 09/18/2015 5:2809/18/2015 6:00pm Chloride Level 103 MEQ/L 98-107 09/18/2015 5:28pm 09/18/2015 6:00pm Carbon Dioxide Level 20 MEQ/L L 22-30 09/18/2015 5:28pm 09/18/2015 6: 00pm Anion Gap 14 MEQ/L 5-15 09/18/2015 5:28pm 09/18/2015 6:00pm Blood Urea Nitrogen 8.0 MG/DL 7-17 09/18/2015 5:28pm 09/18/2015 6:00pm Creatinine 0.5 MG/DL L 0.7-1.2 09/18/2015 5:28pm 09/18/2015 6:00pm BUN/Creatinine Ratio 16 RATIO 6-26 09/18/2015 5:28pm 09/18/2015 6:00pm Glomerular Filtration Rate Calc 139 09/18/2015 5:28pm 09/18/2015 6: 00pm Glucose Level 361 MG/DL H 65-110 09/18/2015 5:28pm 09/18/2015 6:00pm Calculated Osmolality 277 MOSM/KG 261-280 09/18/2015 5:28pm 09/18/2015 6:00pm Calcium Level 9.1 MG/DL 8.4-10.2 09/18/2015 5:28pm 09/18/2015 6:00pm Plasma Lactate 2.0 MMOL/L 0.6-2.2 09/18/2015 6:05pm 09/18/2015 6:26pm Microbiology Results Procedure Source Organism/Result Collection Date/Time Result Date/Time Result Status Blood Culture Peripheral/Iv Start NO GROWTH AFTER 5 DAYS 09/18/2015 6:13pm 09/23/2015 6:15pm Final Procedures Procedure Status Date Provider(s) ROUTINE VENIPUNCTURE Completed 09/18/15 CHEST X-RAY 2VW FRONTAL&LATL Completed 09/18/15 METABOLIC PANEL TOTAL CA Completed 09/18/15 ASSAY OF LACTIC ACID Completed 09/18/15 BL SMEAR W/DIFF WBC COUNT Completed 09/18/15 COMPLETE CBC AUTOMATED Completed 09/18/15 FIBRIN DEGRADATION QUANT Completed 09/18/15 BLOOD CULTURE FOR BACTERIA Completed 09/18/15 BLOOD CULTURE FOR BACTERIA Completed 09/18/15 ELECTROCARDIOGRAM TRACING Completed 09/18/15 HYDRATE IV INFUSION ADD-ON Completed 09/18/15 THER/PROPH/DIAG INJ IV PUSH Completed 09/18/15 TX/PRO/DX INJ NEW DRUG ADDON Completed 09/18/15 TX/PRO/DX INJ NEW DRUG ADDON Completed 09/18/15 EMERGENCY DEPT VISIT Completed 09/18/15"INJECTION, HYDROMORPHONE, UP TO 4 MG" Completed 09/18/15"INJECTION, KETOROLAC TROMETHAMINE, PER 15 MG" Completed 09/18/15"INJECTION, PROMETHAZINE HCL, UP TO 50 MG" Completed 09/18/15"INFUSION, NORMAL SALINE SOLUTION , 1000 CC" Completed 09/18/15 THER/PROPH/DIAG INJ SC/IM Completed 10/01/15 THER/PROPH/DIAG INJ SC/IM Completed 10/01/15 THER/PROPH/DIAG INJ SC/IM Completed 10/01/15 THER/PROPH/DIAG INJ SC/IM Completed 10/01/15 EMERGENCY DEPT VISIT Completed 10/01/15"INJECTION, DEXAMETHASONE SODIUM PHOSPHATE, 1MG" Completed 10/01/15"INJECTION, HYDROMORPHONE, UP TO 4 MG" Completed 10/01/15"INJECTION, DIPHENHYDRAMINE HCL, UP TO 50 MG" Completed 10/01/15"INJECTION, KETOROLAC TROMETHAMINE, PER 15 MG" Completed 10/01/15 Encounters Encounter Location Arrival/Admit Date Discharge/Depart Date Attending Provider Departed [facility] 11/12/15 4:43pm 11/12/15 6: 48pm MISA ALVAREZ DO Departed Emergency Room [facility] 10/01/15 5:49pm 10/01/15 9: 10pm АННА ANDREWS MD Departed Emergency Room [facility] 09/18/15 5:08pm 09/18/15 8: 05pm TERRANCE PRINCE MD Recent Diagnosis
--- OUTSIDE RECORDS SUMMARY | 2016-09-13 13:02 | XMS REPORT | Continuity of Care Document ---
Author Author [facility]ay[facility] MA Ambulatory Address [address] [place] [id number] Phone Unavailable Care Team Providers Care Sales Development Consultant Name Role Phone Rl Ramachandran PP Unavailable Payers Payer name Insurance type Covered democrat ID Authorization(s) Unknown Problems Condition Effective Dates (start - stop) Clinical Status Pharyngitis, Acute - *Acute Thrush - *Acute Pharyngitis, Acute - *Acute Elevated glucose - *Chronic Elevated LFTs - *Chronic Influenza Vaccine - Fever - *Acute Contact dermatitis and other eczema, unspecified cause - *Acute Abdominal pain, right lower quadrant - *Acute NEED FOR PROPHYLACTIC VACCINATION WITH COMBINED [id number] ( DTP) (DTAP) VACCINE - Carpal Tunnel [...] *Chronic GERD - Chronic Anxiety - *Chronic Steatohepatitis - *Chronic Sprain of wrist, unspecified [...] Dosage Effective Dates (start - stop) Status nystatin 100,000 unit/mL Oral Susp take 5 milliliter ([id number]) by oral route 4 times every day [id number] UNITS - No Longer Active trazodone 50 mg tablet Take 2 tablets by mouth at bedtime. - Active Diflucan 200 mg tablet take [...] day with food 500 MG - Active Immunizations Vaccine Date Status Comments Flu (split) (3 yrs or older) completed Tdap (Boostrix r) completed Results Test Name Date and Time Measure Units Reference Range Abnormal Flag Comments Panel Description: Rapid Strep-throat Rapid Strep-throat 09:21:00 Negative Negative Panel Description: Rapid Strep-throat Rapid Strep-throat 09:21:00 Negative Negative Panel Description: Strep Culture-[facility] Group A Strep Culture 09:21:00 Source: Throat Collected: 03/06/13 09:21 Site: Received : 03/06/13 12:15 Order#: [id number] is the Site? : THROATGroup A Strep Culture PRELIM 03/07/13 08:49 No Beta to dateKEY FOR RESULTS: * - NEW RESULT - RESULT WAS MODIFIED AFTER FINAL STATUS SETPerform at [facility] [address] [place] [id number] Kettle [employer] Cook Operator Lioenl Bills MD Panel Description: Strep Culture-[facility] Group A Strep Culture 09:21:00 Source: Throat Collected: 03/06/13 09:21 Site: Received : 03/06/13 12:15 Order#: [id number] is the Site? : THROATGroup A Strep Culture FINAL 03/08/13 06:25 No Group A Strep (Strep pyogenes) isolatedKEY FOR RESULTS: * - NEW RESULT - RESULT WAS MODIFIED AFTER FINAL STATUS SETPerform at [facility] [address] [place] [id number] K[employer] Cook Operator Lionel Bills MD Vital Signs Date / Time: Height Weight Pulse Rate Blood Pressure Temperature /08:45:00 69.00 in 318.00 lbs 100 /min 124/84 mm[Hg] 98.7 F Procedures Procedure Date Unknown Encounters Encounter Location Date Patient Visit [facility] Patient Visit [facility] Patient Visit [facility] Patient Visit [facility] Patient Visit [facility] Patient Visit [facility] Patient [facility] Patient [facility] Patient [facility] Patient [facility] Patient [facility] Patient Visit [facility] Patient Visit [facility] Patient Visit [facility] Patient Visit [facility] Patient Visit [facility] Patient Visit [facility] Patient Visit [facility] Patient Visit [facility] Advance Directives Directive Effective Date Unknown
--- OUTSIDE RECORDS SUMMARY | 2016-09-13 13:03 | XMS REPORT | Continuity of Care Document ---
Author Author [facility] Organization [facility] Address Unknown Phone Unavailable Support Name Relationship Address Phone THOMASADAM MERCHANT Caregiver [facility] [address] [place] [address] ANGELO COWAN MD Caregiver [address], [place] [phone] JIHAN COWAN Next Of Kin [address] [place], [place] [id number] Insurance Providers Payer Name Policy Number Subscriber Name Relationship [facility] Community Plan [id number] Nora Ferguson 16 Self Advance Directives Directive Response Recorded Date/Time Advanced Directives Type None 06/05/14 3:03pm Problems Medical Problems Problem Onset Date Status Dizziness Unknown Active Elevated LFTs Unknown Active Diabetes type 2, uncontrolled Unknown Active Dizziness Unknown Active Anxiety Unknown Active Abdominal pain, left upper quadrant Unknown Active Elevated liver enzymes Unknown Active Constipation Unknown Active Abdominal pain, left upper quadrant Unknown Active Hyperglycemia Unknown Active Sinusitis Unknown Active Hyperglycemia Unknown Active Medications Medication Dose Route Sig Days/Qty Instructions Order Date Discontinued Date Status Citalopram Hydrobromide 40 Mg PO BEDTIME 11/07/09 12/20/12 Discontinued Quetiapine Fumarate 25 Mg PO BEDTIME 11/07/09 04/19/11 Discontinued Alprazolam 0.5 Mg PO NEEDED 11/07/09 03/16/10 Discontinued Omeprazole 40 Mg PO BEDTIME 01/24/11 Active Amitriptyline Hcl 50 Mg PO BEDTIME 04/19/11 07/10/11 Discontinued Trazodone Hcl 50 Mg PO DAILY 07/10/11 12/20/12 Discontinued Venlafaxine Hcl 300 Mg PO DAILY 12/20/12 Active Alprazolam 1 Mg PO DAILY PRN ANXIETY 12/20/12 Active Promethazine Hcl 25 Mg PO Every 6 Hours PRN NAUSEA 12/20/12 Active Etodolac 400 Mg PO TWICE A DAY 60 Qty 06/05/14 Active Spironolactone 25 Mg PO DAILY 30 Qty 06/05/14 Active Naproxen 500 Mg PO TWICE A DAY PRN HEADACHE 30 Qty 06/05/14 Active Insulin Glargine,Hum.rec.anlog 20 Unit SQ BEDTIME 10 Qty 06/05/14 Active Insulin Aspart 8 Unit SQ THREE TIMES DAILY WITH MEALS 15 Qty 06/05/14 Active Tramadol HCl 50 Mg PO Every 6 Hours PRN PAIN 60 Qty 06/05/14 Active Clotrimazole 1 Applic TOP TWICE A DAY 60 Qty 06/05/14 Active Gabapentin 300 Mg PO TWICE A DAY 60 Qty 06/05/14 Active Trazodone HCl 300 Mg PO BEDTIME 30 Qt06/05/14 Active Quetiapine Fumarate 400 Mg PO BEDTIME 30 Qty 06/05/14 Active Clonidine HCl 1 Tab PO DAILY 30 Qty 06/05/14 Active Cephalexin 1 Cap PO FOUR TIMES DAILY For sinusitis 10 Days 06/05/14 Active Hydrocodone/Acetaminophen 11 Tab PO EVERY 4-6 HOURS PRN PAIN 12 Qty Active Social History Social History Problem Response Recorded Date/Time Hx Substance Use No 06/05/2014 3:13pm Hx Alcohol Use No 06/05/2014 3:13pm Has the pt used tobacco in the last 12 months Yes 12/20/2012 11:39am Query Response Start Date Stop Date Smoking Status Current every day smoker Hospital Discharge Instructions No hospital discharge instructions. Plan of Care No plan of care. Functional Status Query Response Date Recorded Physical Hygiene Self June 05, 2014 3:13pm Disabilities Visual June 05, 2014 3:13pm Devices Used Glasses June 05, 2014 3:13pm Dressing Self June 05, 2014 3:13pm Ambulation Self June 05, 2014 3:13pm Diet Self June 05, 2014 3:13pm Mental Status Alert Oriented June 05, 2014 3:13pm Disabilities Visual June 05, 2014 3:13pm Devices Used Glasses June 05, 2014 3:13pm Physical Hygiene Self June 05, 2014 3:13pm Dressing Self June 05, 2014 3:13pm Ambulation Self June 05, 2014 3:13pm Diet Self June 05, 2014 3:13pm Allergies, Adverse Reactions, Alerts Allergen Type Severity Reaction Status Last Updated Sulfa (Sulfonamide Antibiotics) Allergy Unknown HIVES Active 06/05/14 Codeine Allergy Unknown Active 06/05/14 Immunizations Name Given Type Hx Influenza Vaccination Y fall Historical Hx Pneumococcal Vaccination No Historical Hx Influenza Vaccination Y fall Historical Vital Signs Acute Vital Signs Vital Response Date/Time Temperature (Fahrenheit) 97.6 deg F (96.8 - 99.1) Temperature (Calculated Celsius) 36.90029 degrees C (36.0 - 37.3) Pulse Rate (adult) 110 bpm (60 - 100) Respiratory Rate 20 breaths/min (10 - 20) O2 Sat by Pulse Oximetry 97 % (90 - 100) Blood Pressure 131/62 mm Hg Height 5 ft 8 in Weight 303 lb Body Mass Index 46.0 kg/m^2 Results Test Source Date Result Interp. Ref. Range Comments Acetone Level June 05, 2014 3:35pm Negative - Alanine Aminotransferase (ALT/SGPT) June 05, 2014 3:35pm 100 U/L H 9- 52 Albumin June 05, 2014 3:35pm 5.0 G/DL N 3.5-5.0 Albumin/Globulin Ratio June 05, 2014 3:35pm 1.2 RATIO N 1.1-2.2 Alkaline Phosphatase June 05, 2014 3:35pm 148 U/L H 38-126 Amylase Level August 22, 2013 9:10pm 32 U/L N 30-110 Anion Gap June 05, 2014 3:35pm 17 MEQ/L H 5-15 Aspartate Amino Transf (AST/SGOT) June 05, 2014 3:35pm 79 U/L H 14- 36 BUN/Creatinine Ratio June 05, 2014 3:35pm 22 RATIO N 6-26 Basophils # (Auto) June 05, 2014 3:35pm 0.0 T/MM3 N 0-0.2 Basophils (%) (Auto) June 05, 2014 3:35pm 0.1 % N 0-2 Blood Urea Nitrogen June 05, 2014 3:35pm 13.0 MG/DL N 7-17 C-Reactive Protein December 01, 2011 6:23pm 11.9 MG/L H 0-9 Calcium Level June 05, 2014 3:35pm 10.8 MG/DL H 8.4-10.2 Calculated Osmolality June 05, 2014 3:35pm 283 MOSM/KG H 261-280 Carbon Dioxide Level June 05, 2014 3:35pm 23 MEQ/L N 22-30 Chemistry Specimen Hemolysis June 05, 2014 3:35pm < 15 0-25 0-25: No Hemolysis.26-70: Slight Hemolysis - can falsely elevate K and Urine Protein. 71-285: Moderate Hemolysis - can falsely elevate K, Troponin I, CA 19-9, PTH, CSF GLucose, and Urine Protein, and can falsely decrease Phenytoin. 286-999: Gross Hemolysis - can falsely elevate K, Troponin I, CA 19-9, PTH, CSF Glucose, and Urine Protine, and can falsely decrease Phenytoin. Recommend specimen recollection. Chloride Level June 05, 2014 3:35pm 95 MEQ/L L 98-107 Conjugated Bilirubin December 01, 2011 6:23pm 0.00 MG/DL N 0.00-0.30 Creatinine June 05, 2014 3:35pm 0.6 MG/DL L 0.7-1.2 Eosinophils # (Auto) June 05, 2014 3:35pm 0.0 T/MM3 N 0-0.5 Eosinophils (%) (Auto) June 05, 2014 3:35pm 0.1 % N 0-4 Erythrocyte Sedimentation Rate December 01, 2011 6:23pm 19 MM/HR N 0-20 Globulin June 05, 2014 3:35pm 4.2 G/DL H 2.4-3.6 Glomerular Filtration Rate Calc June 05, 2014 3:35pm 114 - Glucometer June 05, 2014 5:55pm 284 mg/dL H 65-110 Glucose Level June 05, 2014 3:35pm 506 MG/DL H 65-110 Group A Streptococcus Screen March 16, 2010 9:55pm Negative - Strep culture confirmation to follow Hematocrit June 05, 2014 3:35pm 44.2 % N 36-46 Hemoglobin June 05, 2014 3:35pm 15.4 GM/DL N 12-16 Hepatitis A IgM Antibody August 22, 2013 9:10pm Negative - Hepatitis B Core IgM Antibody August 22, 2013 9:10pm Negative - Hepatitis B Surface Antigen August 22, 2013 9:10pm Negative - Hepatitis C Antibody August 22, 2013 9:10pm Negative - Icterus Index June 05, 2014 3:35pm < 2 0-7 Immature Granulocyte # (Auto) June 05, 2014 3:35pm 0.10 T/MM3 H 0.00- 0.03 Immature Granulocyte % (Auto) June 05, 2014 3:35pm 0.5 % N 0.0-0.5 Lab Scanned Report December 14, 2011 4:21pm REFERENCE LAB [id number] - Lipase August 22, 2013 9:10pm 107 U/L N 23-300 Lymphocytes # (Auto) June 05, 2014 3:35pm 2.0 T/MM3 N 1-4.8 Lymphocytes (%) (Auto) June 05, 2014 3:35pm 10.8 % L 23-45 Mean Corpuscular Hemoglobin June 05, 2014 3:35pm 31.9 UUG N 26-34 Mean Corpuscular Hemoglobin Concent June 05, 2014 3:35pm 34.8 GM/DL N 31-37 Mean Corpuscular Volume June 05, 2014 3:35pm 91.5 UM3 N 80-100 Mean Platelet Volume June 05, 2014 3:35pm 12.2 UM3 N 9.4-12.4 Monocytes # (Auto) June 05, 2014 3:35pm 0.9 T/MM3 H 0-0.8 Monocytes (%) (Auto) June 05, 2014 3:35pm 4.8 % N 0-9.0 Neutrophils # (Auto) June 05, 2014 3:35pm 15.7 T/MM3 H 1.8-7.7 Neutrophils (%) (Auto) June 05, 2014 3:35pm 83.7 % H 33-66 Platelet Count June 05, 2014 3:35pm 256 T/MM3 N 130-400 Potassium Level June 05, 2014 3:35pm 4.2 MEQ/L N 3.6-5 RDW Standard Deviation June 05, 2014 3:35pm 41.0 FL N 36.9-50.2 Red Blood Count June 05, 2014 3:35pm 4.83 M/MM3 N 4.00-5.20 Sodium Level June 05, 2014 3:35pm 135 MEQ/L N 134-144 Total Bilirubin June 05, 2014 3:35pm 0.60 MG/DL N 0.20-1.30 Total Protein June 05, 2014 3:35pm 9.2 G/DL H 6.3-8.2 Troponin I June 05, 2014 3:35pm < 0.012 ng/ml 0-0.12 Turbidity June 05, 2014 3:35pm < 20 0-20 Unconjugated Bilirubin December 01, 2011 6:23pm 0.00 MG/DL N 0.00-1.10 Urinalysis Comment June 05, 2014 3:27pm Microscopic not ind. - Has specimen been collected/obtained? Y Urine Bacteria July 31, 2013 10:30pm Trace H - Has specimen been collected/obtained? Y Urine Bilirubin June 05, 2014 3:27pm Negative - Has specimen been collected/obtained? Y Urine Blood June 05, 2014 3:27pm Trace-intact H - Has specimen been collected/obtained? Y Urine Collection Type June 05, 2014 3:27pm Cleancatch-midstream - Has specimen been collected/obtained? Y Urine Color June 05, 2014 3:27pm Yellow - Has specimen been collected/obtained? Y Urine Culture Indicated July 31, 2013 10:30pm Cult not indicated - Has specimen been collected/obtained? Y Urine Drug Screen (T) December 12, 2011 6:30pm Sent out - [facility] Urine Glucose (UA) June 05, 2014 3:27pm 3+ H - Has specimen been collected/obtained? Y Urine Ketones June 05, 2014 3:27pm Negative - Has specimen been collected/obtained? Y Urine Leukocyte Esterase June 05, 2014 3:27pm Negative - Has specimen been collected/obtained? Y Urine Microscopic Not Indicated April 19, 2011 8:13pm Not indicated - Has specimen been collected/obtained? Y Urine Nitrite June 05, 2014 3:27pm Negative - Has specimen been collected/obtained? Y Urine Test April 19, 2011 8:13pm Negative - Has specimen been collected/obtained? Y Urine Protein June 05, 2014 3:27pm Negative - Has specimen been collected/obtained? Y Urine RBC July 31, 2013 10:30pm Trace /HPF - Has specimen been collected/obtained? Y Urine Renal Epithelial Cells December 20, 2012 1:30pm 0-1 /HPF - Has specimen been collected/obtained? Y Urine Specific [place] June 05, 2014 3:27pm <=1.005 L - Has specimen been collected/obtained? Y Urine Squamous Epithelial Cells July 31, 2013 10:30pm 10-20 - Has specimen been collected/obtained? Y Urine Turbidity June 05, 2014 3:27pm Clear - Has specimen been collected/obtained? Y Urine Urobilinogen June 05, 2014 3:27pm 0.2 EU/DL - Has specimen been collected/obtained? Y Urine WBC July 31, 2013 10:30pm None seen /HPF - Has specimen been collected/obtained? Y Urine pH June 05, 2014 3:27pm 5.5 - Has specimen been collected/ obtained? Y White Blood Count June 05, 2014 3:35pm 18.7 T/MM3 H 4.5-11.0 Group A Streptococcus Culture Throat March 16, 2010 10:19pm Streptococcus Group C Urine Culture Urine, Voided-Not Cc-Midstream December 20, 2012 2:10pm Mixed [place] Prob. Contaminants Name: NORA FERGUSON Unit #: [id number] : 1980 Sex: F Loc / Svc: ED DOS: 06/05/14 Signed Report #: [id number] DIAGNOSTIC IMAGING REPORT TYPE OF EXAM: CT HEAD W/O CONTRAST Dictated By: GUDELIA SPEAR MD INDICATION: ITS.REASON: altered mental status CT HEAD W/O CONTRAST: Comparison: December 01, 2011 Technique: Axial CT images through the head were performed without contrast. FINDINGS: The ventricles are of normal size, shape, and contour for the patient's age. The brainstem, cerebellum, and cerebral hemispheres have a normal morphology and CT attenuation. There is no evidence of midline displacement. No hemorrhage, signs of acute territorial stroke, mass effect, mass lesions, or edema is evident. The visualized portions of the skull base, midface, and calvarium demonstrate no abnormality. The paranasal sinuses are well aerated and free of significant disease. The tympanic and mastoid cavities appear normal. IMPRESSION: No acute intracranial abnormality or hemorrhage. . Procedures No known history of procedures. Encounters Encounter Location Date/Time Departed Emergency Room [facility] 06/05/14 3:03pm Recent Diagnosis
--- OUTSIDE RECORDS SUMMARY | 2016-09-13 13:03 | XMS REPORT | Continuity of Care Document ---
Author Author [facility] Organization [facility] Address Unknown Phone Unavailable Care Team Providers Care Foreign Exchange Student Coordinator Name Role Phone BRITTANY REY MD Primary Care Physician [phone] Insurance Providers Payer Name Policy Number Subscriber Name Relationship [facility] Community Plan [id number] Nora Arita 16 Self Advance Directives Directive Response Recorded Date/Time Advanced Directives Type None 07/16/14 11:00pm Problems Medical Problems Problem Onset Date Status Dizziness Unknown Active Elevated LFTs Unknown Active Diabetes type 2, uncontrolled Unknown Active Dizziness Unknown Active Anxiety Unknown Active Abdominal pain, left upper quadrant Unknown Active Elevated liver enzymes Unknown Active Constipation Unknown Active Abdominal pain, left upper quadrant Unknown Active Hyperglycemia Unknown Active Sinusitis Unknown Active Hyperglycemia Unknown Active Lower extremity pain Unknown Active Medications Medication Dose Route Sig [...] Trazodone HCl 300 Mg PO BEDTIME 30 Qty 06/05/14 Active Quetiapine Fumarate 400 Mg PO BEDTIME 30 Qty 06/05/14 Active Clonidine HCl 1 Tab PO DAILY 30 Qty 06/05/14 Active Hydrocodone/Acetaminophen 1-2 Tab PO EVERY 4-6 HOURS 15 Qty 07/17/14 Active Cephalexin 1 Cap PO THREE TIMES A DAY 7 Days 07/17/14 Active Social History Social History Problem Response Recorded Date/Time Hx Substance Use No 07/16/2014 11:42pm Hx Alcohol Use No 07/16/2014 11:42pm Has the pt used tobacco in the last 12 months Yes 12/20/2012 11:39am Query Response Start Date Stop Date Smoking Status Current every day smoker Hospital Discharge Instructions No hospital discharge instructions. Plan of Care No plan of care. Functional Status Query Response Date Recorded Physical Hygiene Self July 16, 2014 11:42pm Disabilities None July 16, 2014 11:42pm Devices Used None July 16, 2014 11:42pm Dressing Self July 16, 2014 11:42pm Ambulation Self July 16, 2014 11:42pm Diet Self July 16, 2014 11:42pm Mental Status Alert Oriented July 17, 2014 12:45am Disabilities None July 16, 2014 11:42pm Devices Used None July 16, 2014 11:42pm Physical Hygiene Self July 16, 2014 11:42pm Dressing Self July 16, 2014 11:42pm Ambulation Self July 16, 2014 11:42pm Diet Self July 16, 2014 11:42pm Allergies, Adverse Reactions, Alerts Allergen Type Severity Reaction Status Last Updated Sulfa (Sulfonamide Antibiotics) Allergy Unknown HIVES Active 07/16/14 Codeine Allergy Unknown Active 07/16/14 Immunizations Name Given Type Hx Influenza Vaccination Y fall Historical Hx Pneumococcal Vaccination No Historical Hx Influenza Vaccination Y fall Historical Vital Signs Acute Vital Signs Vital Response Date/Time Temperature (Fahrenheit) 96.6 deg F (96.8 - 99.1) Temperature (Calculated Celsius) 35.33210 degrees C (36.0 - 37.3) Pulse Rate (adult) 100 bpm (60 - 100) Respiratory Rate 20 breaths/min (10 - 20) O2 Sat by Pulse Oximetry 96 % (90 - 100) Blood Pressure 144/72 mm Hg Height 5 ft 8 in Weight 302 lb Body Mass Index 45.0 kg/m^2 Results Test Source Date Result Interp. [...] 22 RATIO N 6-26 Basophils # (Auto) July 16, 2014 11:49pm 0.1 T/MM3 N 0-0.2 Basophils (%) (Auto) July 16, 2014 11:49pm 0.6 % N 0-2 Blood Urea Nitrogen June [...] 0.6 MG/DL L 0.7-1.2 Eosinophils # (Auto) July 16, 2014 11:49pm 0.2 T/MM3 N 0-0.5 Eosinophils (%) (Auto) July 16, 2014 11:49pm 2.1 % N 0-4 Erythrocyte Sedimentation Rate December [...] - Strep culture confirmation to follow Hematocrit July 16, 2014 11:49pm 41.8 % N 36-46 Hemoglobin July 16, 2014 11:49pm 14.6 GM/DL N 12-16 Hepatitis A IgM Antibody August 22, 2013 9:10pm Negative - Hepatitis B Core IgM Antibody August 22, 2013 9:10pm Negative - Hepatitis B Surface Antigen August 22, 2013 9:10pm Negative - Hepatitis C Antibody August 22, 2013 9:10pm Negative - Icterus Index June 05, 2014 3:35pm < 2 0-7 Immature Granulocyte # (Auto) July 16, 2014 11:49pm 0.03 T/MM3 N 0.00- 0.03 Immature Granulocyte % (Auto) July 16, 2014 11:49pm 0.3 % N 0.0-0.5 Lab Scanned Report December 14, 2011 4:21pm REFERENCE LAB [id number] - Lipase August 22, 2013 9:10pm 107 U/L N 23-300 Lymphocytes # (Auto) July 16, 2014 11:49pm 2.8 T/MM3 N 1-4.8 Lymphocytes (%) (Auto) July 16, 2014 11:49pm 30.8 % N 23-45 Mean Corpuscular Hemoglobin July 16, 2014 11:49pm 32.2 UUG N 26-34 Mean Corpuscular Hemoglobin Concent July 16, 2014 11:49pm 34.9 GM/DL N 31-37 Mean Corpuscular Volume July 16, 2014 11:49pm 92.3 UM3 N 80-100 Mean Platelet Volume July 16, 2014 11:49pm 11.6 UM3 N 9.4-12.4 Monocytes # (Auto) July 16, 2014 11:49pm 0.7 T/MM3 N 0-0.8 Monocytes (%) (Auto) July 16, 2014 11:49pm 7.2 % N 0-9.0 Neutrophils # (Auto) July 16, 2014 11:49pm 5.3 T/MM3 N 1.8-7.7 Neutrophils (%) (Auto) July 16, 2014 11:49pm 59.0 % N 33-66 Platelet Count July 16, 2014 11:49pm 195 T/MM3 N 130-400 Potassium Level June 05, 2014 3:35pm 4.2 MEQ/L N 3.6-5 RDW Standard Deviation July 16, 2014 11:49pm 42.7 FL N 36.9-50.2 Red Blood Count July 16, 2014 11:49pm 4.53 M/MM3 N 4.00-5.20 Sodium Level June 05, [...] 12, 2011 6:30pm Sent out - [facility] Urine Glucose (UA) June 05, 2014 3:27pm [...] Has specimen been collected/obtained? Y Urine Specific [place] June 05, 2014 3:27pm <=1.005 L - [...] been collected/ obtained? Y White Blood Count July 16, 2014 11:49pm 9.0 T/MM3 N 4.5-11.0 Group A Streptococcus Culture Throat March 16, 2010 10:19pm Streptococcus Group C Urine Culture Urine, Voided-Not Cc-Midstream December 20, 2012 2:10pm Mixed [place] Prob. Contaminants Name: NORA FERGUSON Unit #: [id number] : 1980 Sex: F Loc / Svc: ED DOS: 06/05/14 Signed Report #: [id number] DIAGNOSTIC IMAGING REPORT TYPE OF EXAM: CT [...] acute intracranial abnormality or hemorrhage. . Procedures Procedure Status Date Provider(s) CT HEAD/BRAIN W/O DYE completed 06/05/14 CHEST X-RAY 1 VIEW FRONTAL completed 06/05/14 COMPREHEN METABOLIC PANEL completed 06/05/14 URINALYSIS AUTO W/O SCOPE completed 06/05/14 TEST FOR ACETONE/KETONES completed 06/05/14 REAGENT STRIP/BLOOD GLUCOSE completed 06/05/14 REAGENT STRIP/BLOOD GLUCOSE completed 06/05/14 REAGENT STRIP/BLOOD GLUCOSE completed 06/05/14 ASSAY OF TROPONIN QUANT completed 06/05/14 COMPLETE CBC W/AUTO DIFF WBC completed 06/05/14 ELECTROCARDIOGRAM TRACING completed 06/05/14 HYDRATE IV INFUSION ADD-ON completed 06/05/14 HYDRATE IV INFUSION ADD-ON completed 06/05/14 THER/PROPH/DIAG IV INF INIT completed 06/05/14 THER/PROPH/DIAG INJ SC/IM completed 06/05/14 TX/PRO/DX INJ NEW DRUG ADDON completed 06/05/14 TX/PRO/DX INJ NEW DRUG ADDON completed 06/05/14 TX/PRO/DX INJ NEW DRUG ADDON completed 06/05/14 TX/PRO/DX INJ SAME DRUG LAMP MECHANIC completed 06/05/14 EMERGENCY DEPT VISIT completed 06/05/14748292"INJECTION, CEFTRIAXONE SODIUM, PER 250 MG" completed 06/05/14402558"INJECTION, HYDROMORPHONE, UP TO 4 MG" completed 06/05/14"INJECTION, HYDROMORPHONE, UP TO 4 MG" completed 06/05/14"INJECTION, INSULIN, PER 5 UNITS" completed 06/05/14168721"INJECTION, KETOROLAC TROMETHAMINE, PER 15 MG" completed 06/05/14"INJECTION, ONDANSETRON HYDROCHLORIDE, PER 1 MG" completed 06/05/14"INFUSION, NORMAL SALINE SOLUTION , 1000 CC" completed 06/05/14614602"INFUSION, NORMAL SALINE SOLUTION , 1000 CC" completed 06/05/14221081"INFUSION, NORMAL SALINE SOLUTION , 250 CC" completed 06/05/14 Encounters Encounter Location Date/Time Departed Emergency Room [facility] 07/16/14 10:57pm Departed Emergency Room [facility] 06/05/14 3:03pm Recent Diagnosis
[2016-09-13] MEDS ORDERED: PREG150C PO (13:18)
[2016-09-13] MEDS ORDERED: OXYC15TA50 PO (13:20)
[2016-09-13] MEDS ORDERED: METH750T3 PO (13:20)
[2016-09-13] MEDS ORDERED: HYDR2TAB7 PO (13:20)
--- NOTE | 2016-09-13 13:39 | ERPDOC ---
Departure Disposition Decision Date: September 13, 2016 Disposition Decision Time: 15:02 Disposition: 01 DISCHARGED HOME, SELF-CARE Impression Impression Impression: Primary Impression: Migraine headache Migraine type: unspecified Status migrainosus presence: without status migrainosus Intractability: not intractable Qualified Codes: G43.909 - Migraine, unspecified, not intractable, without status migrainosus Additional Impression: Right upper quadrant abdominal pain Severity: Moderate Condition: Stable Seen By: Mid-level only Referrals: JENNIFER GAY MD (PCP) ANGELO COWAN MD (Family) Patient Instructions: Abdominal Pain (ED), Acute Headache (ED) Problems/Meds/Labs Reviewed?: Yes Medications reviewed and manag: Yes Additional Instructions: Your WBC today is normal. I did speak with Dr Armstrong and he does want to go ahead and see you in clinic for follow up as scheduled. Use the Nystatin as prescribed. Return to ER with any new issues/concerns. Follow up care ordered?: Yes Mental Status: Alert Scripts Nystatin (Nystatin) 100,000 Unit/1 Ml Oral.susp 5 ML PO QID, #200 ML 0 Refills 5 ml swish and swallow four times a day. Prov: CAROLA BAUMANN JUNIOR BUYER 09/13/16 HPI - General Medical General Chief Complaint: General Stated Complaint: POST BRAIN SURGERY HEAD PAIN, RUQ PAIN, NAUSEA Time Seen by Provider: 13:04 Source: patient Exam Limitations: no limitations HPI - General Medical Initial Comments She has a history of trigeminal neuralgia and had surgery on September [address] Armstrong. She states that she had scar tissue wrapped around the nerve that he released. She has an incision behind the right ear. Was discharged home shortly after her surgery. Has a follow up appointment scheduled in [address] Armstrong. She has onset of headache that started last night and persisted today. Has also had right upper quadrant abdominal pain and nausea for the last 3 days. Has had a fever up to 100.7 at home. Did try to call Dr Armstrong's office but was unable to make contact with him today. She has been taking her chronic pain medications at home but have not been helping. Occurred At: home Onset: Gradual Duration: other (Over the last 3 days) Severity: moderate Associated Symptoms: fever/chills (up to 100.7), DENIES: chest pain, cough, diaphoresis, headaches, loss of appetite, malaise, nausea/vomiting, rash, seizure, shortness of breath, syncope, weakness Hx of Similar Symptoms: No Allergies: Coded Allergies: Sulfa (Sulfonamide Antibiotics) (Verified Allergy, Unknown, HIVES, 09/13/16) codeine (Verified Allergy, Unknown, DIFFICULTY BREATHING, 09/13/16) doxycycline (Unverified Allergy, Unknown, ITCHING/RASH, 09/13/16) liraglutide (Verified Allergy, Unknown, NAUSEA, 09/13/16) metformin (Verified Allergy, Unknown, NAUSEA, 09/13/16) Past History Patient Surgical History Hysterectomy. Umbilical hernia repair. Cholecystectomy Appendectomy. Exploratory lap and removal of adhesions 02/20 (Dr. Monique) Past Medical History Metabolic: diabetes GI: GERD, ulcers Female: UTI Neurological: headaches, migraines Musculoskeletal: back pain Psychological: anxiety, depression Surgical History General: appendix, gallbladder, hernia, other Cardiac: cardiac cath Reproductive/: hysterectomy, tubal ligation Family History Family PMH: FOUND: cancer, diabetes Vaccines Hx Influenza Vaccination: Yes (FALL 2013) Hx Pneumococcal Vaccination: No Hx Tetanus Diptheria: Yes (UTD PER PATIENT) Social History Sexuality: male partner Review of Systems Constitutional Constitutional: fever, DENIES: chills, dizziness, fatigue, weakness Eyes Vision: DENIES: blurring, double vision ENMT Ears: pain (behind right ear at site of surgical incision) Sinuses: DENIES: congestion, rhinorrhea Mouth/Throat: DENIES: painful swallowing, scratchy throat, sore throat Cardiovascular Cardiac: DENIES: chest pain, orthopnea Rhythm/Rate: DENIES: irregular beat, palpitations Pulmonary Respiratory: DENIES: cough, dyspnea, sputum, tachypnea GI Upper Abdomen: DENIES: nausea, pain, vomiting Lower Abdomen: DENIES: constipation, diarrhea, pain Integumentary Skin: DENIES: rash Neurological General: DENIES: headache, numbness, tingling, weakness Physical Exam General General Nourishment: well nourished, well developed, appears stated age, no acute distress, adult General Body Habitus: well groomed Vitals and Pain First Documented Vital Signs Date Time Temp Pulse Resp B/P Pulse Ox O2 Delivery O2 Flow Rate FiO2 09/13/16 13:00 97.8 119 22 138/73 97 Nasal Cannula Weight: Kilograms: 124.400 Height (feet): 5 Height (inches): 9.00 Triage Pain Scale: RN VS reviewed by Provider: Yes Normal Exams: Neck: Full range of motion, without adenopathy, JVD, bruits or thyromegaly Chest/Resp: Clear all rosado, with good airflow, and symmetry bilaterally CV: Regular rate and rhythm, without murmur or gallop, Pulses 2+ all extremities, capillary refill, <2 seconds all ext., no pedal edema noted Abdomen: Bowel sounds positive, non-distended, no hepatosplenomegaly, masses or bruits noted Lymphatic: No lymphadenopathy, or lymphedema noted Integumentary: No rashes, hives, or bruising noted, hair and nails, without abnormality Neurologic: Patient is alert, and oriented, cranial nerves, motor/sensory/ cerebellar, exams w/o gross deficits, to observation Psychiatric: Patient exhibits, appropriate attention, emotion and affect ENMT (brief) ENMT Brief: FOUND: TM clear, TM good light reflex, ear canals clear, lesions, mucosa moist, normal dentition, normal tonsils, other (There is some slight erythema and lesions on the posterior soft palate), NOT FOUND: nasal erythema, nasal exudate, nasal swelling, pharnyx erythema, tonsillar deviation Abdomen Inspection: NOT FOUND: distention Palpation: FOUND: involuntary guarding, soft, tender (moderate TTP in the right upper quadrant), NOT FOUND: rebound, voluntary guarding Percussion: NOT FOUND: tympanitic Auscultation: FOUND: normoactive Integumentary (brief) Integumentary Brief: FOUND: other (She has a well healing incision behind the right ear that is slightly TTP with erythema surrounding the sutures but does not appear to be infectious in appearance.) Differential Diagnoses Considering: Other (bowel obstruction, constipation, hepatitis, gastritis, post surgical infection, meningitis, headache) Progress Results/Orders Orders Procedure Category Date Status Time Cbc W/Auto LAB 09/13/16 Complete Diff-Reflex Manual Cmp - Comprehensive LAB 09/13/16 Complete Metabolic Lipase LAB 09/13/16 Complete Iv Lock (Ed Only) EDM 09/13/16 Transmitted 13:34 Ondansetron Inj PHA 09/13/16 Complete (Zofran) 13:45 Hydromorphone PHA 09/13/16 Complete (Dilaudid) 13:45 Normal Saline (Normal PHA 09/13/16 Complete Saline Iv) 13:45 Hydromorphone PHA 09/13/16 In Process (Dilaudid) 15:15 Lab Results Laboratory Tests Test 09/13/16 14:05 White Blood Count 10.0T/MM3 Red Blood Count 4.57M/MM3 Hemoglobin 14.7GM/DL Hematocrit 43.0% Mean Corpuscular Volume 94.1UM3 Mean Corpuscular Hemoglobin 32.2UUG Mean Corpuscular Hemoglobin Concent 34.2GM/DL RDW Standard Deviation 43.2FL Platelet Count 197T/MM3 Mean Platelet Volume 11.5UM3 Immature Granulocyte % (Auto) 0.3% Neutrophils (%) (Auto) 57.9% Lymphocytes (%) (Auto) 32.7% Monocytes (%) (Auto) 7.0% Eosinophils (%) (Auto) 1.7% Basophils (%) (Auto) 0.4% Absolute Immature Granulocyte (auto 0.03T/MM3 Absolute Neutrophils (auto) 5.8T/MM3 Absolute Lymphocytes (auto) 3.3T/MM3 Absolute Monocytes (auto) 0.7T/MM3 Absolute Eosinophils (auto) 0.2T/MM3 Absolute Basophils (auto) 0.0T/MM3 Turbidity < 20 Sodium Level 139MEQ/L Potassium Level 3.6MEQ/L Chloride Level 100MEQ/L Carbon Dioxide Level 25MEQ/L Anion Gap 14MEQ/L Blood Urea Nitrogen 7.0MG/DL Creatinine 0.4MG/DL Glomerular Filtration Rate Calc 179 BUN/Creatinine Ratio 18RATIO Glucose Level 129MG/DL Calculated Osmolality 268MOSM/KG Calcium Level 9.1MG/DL Total Bilirubin 0.70MG/DL Icterus Index < 2 Aspartate Amino Transf (AST/SGOT) 88U/L Alanine Aminotransferase (ALT/SGPT) 144U/L Alkaline Phosphatase 140U/L Total Protein 7.4G/DL Albumin 4.2G/DL Globulin 3.2G/DL Albumin/Globulin Ratio 1.3RATIO Lipase 70U/L Chemistry Specimen Hemolysis 18 Medications Current ED Medications Ondansetron HCl (Zofran) 4 mg O ONCE IV Last administered on 09/13/16 14:01; Start 09/13/16 at 13:45; Stop 09/13/16 at 13:46; Status DC Hydromorphone HCl 0.5 mg 0.5 mg O ONCE IV Last administered on 09/13/16t 14:03 ; Start 09/13/16 at 13:45; Stop 09/13/16 at 13:46; Status DC Sodium Chloride (Normal Saline IV) 1,000 ml @ 1,000 mls/hr Q1H ONCE IV Last administered on 09/13/16t 14:00; Start 09/13/16 at 13:45; Stop 09/13/16 at 14:44; Status DC Hydromorphone HCl (Dilaudid) 0.5 mg O ONCE IV ; Start 09/13/16 at 15:15; Stop at 15:16 Progress Progress WBC is 10.0 with no left shift. Neutrophils are 57.9. CMP is normal aside from mildly elevated LFTs which she states is normal for her. She has a history of SILVA. Did speak with Dr Armstrong regarding her labs and incision check. He states that she may follow up as scheduled on . Her headache is improved after the Dilaudid. Will go ahead and give another dose and dismiss to home. She is having abdominal pain but again WBC is normal as well as lipase. Nausea is improved. Will have her monitor symptoms. She does have some lesions on the the soft palate so this may be due to a virus. She also does have a history of thrush and did just complete a course of steroids. Will have her follow up with PCP if not improving, but will treat with Nystatin today. CAROLA BAUMANN APRN September 13, 2016 13:39
[2016-09-13] MEDS ORDERED: ONDANSETRON 4mg/2ml INJECTION IV ONE (13:45)
[2016-09-13] MEDS ORDERED: HYDROMORPHONE 2mg/ml INJECTION IV ONE ×2 (13:45→15:15)
[2016-09-13] MEDS ORDERED: NORMAL SALINE 1,000 ML IV ONE (13:45)
[2016-09-13 14:12] LABS: BASOPHILS % (AUTO) 0.4 % (0-2); EOSINOPHILS # (AUTO) 0.2 T/MM3 (0-0.5); EOSINOPHILS % (AUTO) 1.7 % (0-4); HGB - HEMOGLOBIN 14.7 GM/DL (12-16); IMMATURE GRANULOCYTE # (AUTO) 0.03 T/MM3 (0.00-0.03); IMMATURE GRANULOCYTE % (AUTO) 0.3 % (0.0-0.5); LYMPHOCYTES # (AUTO) 3.3 T/MM3 (1-4.8); LYMPHOCYTES % (AUTO) 32.7 % (23-45); MEAN CORPUSCULAR HGB 32.2 UUG (26-34); MEAN CORPUSCULAR HGB CONC(MCHC 34.2 GM/DL (31-37); MEAN CORPUSCULAR VOLUME 94.1 UM3 (80-100); MEAN PLATELET VOLUME 11.5 UM3 (9.4-12.4); MONOCYTES # (AUTO) 0.7 T/MM3 (0-0.8); NEUTROPHILS #(AUTO)-ABSOLUTE 5.8 T/MM3 (1.8-7.7); NEUTROPHILS % (AUTO) 57.9 % (33-66); RED BLOOD COUNT 4.57 M/MM3 (4.00-5.20)
[2016-09-13 14:35] LABS: ALBUMIN 4.2 G/DL (3.5-5.0); ALBUMIN/GLOBULIN RATIO 1.3 RATIO (1.1-2.2); ALKALINE PHOSPHATASE 140 U/L (38-126); ALT (SGPT) 144 U/L (9-52); ANION GAP 14 MEQ/L (5-15); AST (SGOT) 88 U/L (14-36); BUN/CREATININE RATIO 18 RATIO (6-26); CALCIUM 9.1 MG/DL (8.4-10.2); CHLORIDE 100 MEQ/L (98-107); CO2 - CARBON DIOXIDE 25 MEQ/L (22-30); CREATININE 0.4 MG/DL (0.7-1.2); GLOMERULAR FILTRATION RATE 179; GLUCOSE 129 MG/DL (65-110); LIPASE 70 U/L (23-300); POTASSIUM 3.6 MEQ/L (3.6-5); SODIUM 139 MEQ/L (134-144); TOTAL PROTEIN 7.4 G/DL (6.3-8.2)
[2016-09-13] MEDS ORDERED: NYST5ORA7 PO (15:04)
[2016-09-13 15:31] VITALS: BP 116/55; PULSE 110; RESP 19; TEMP 98.4; O2SAT 95
--- OUTSIDE RECORDS SUMMARY | 2016-09-13 15:34 | XMS REPORT | Continuity of Care Document ---
Author Author [facility] Organization [facility] Address Unknown Phone Unavailable Allergies Medications Problems Date Dx Coded Attending Type Code Diagnosis Diagnosed By 03/20/2012 Ham Card MD Final 354.0 CARPAL TUNNEL SYNDROME 03/20/2012 Ham Card MD 719.43 JOINT PAIN-FOREARM Procedures Results Encounters ACCT No. Visit Date/Time Discharge Status Pt. Type Provider Facility Loc./Unit Complaint [id number] 03/20/2012 10:14:00 2011 23:59:59 CLS Outpatient Ham Card MD [facility]
--- OUTSIDE RECORDS SUMMARY | 2016-09-13 15:36 | XMS REPORT | Continuity of Care Document ---
Author Author [facility] Organization [facility] Address Unknown Phone Unavailable Care Team Providers Care Communications Senior Associate Name Role Phone BRITTANY REY MD Primary Care Physician [phone] Insurance Providers Payer Name Policy Number Subscriber Name Relationship [facility] Community Plan [id number] Nora Arita 16 Self Advance Directives Directive [...] F (96.8 - 99.1) Temperature (Calculated Celsius) 35.63710 degrees C (36.0 - 37.3) Pulse Rate [...] Report December 14, 2011 4:21pm REFERENCE LAB [id number] - Lipase August 22, 2013 9:10pm 107 [...] 12, 2011 6:30pm Sent out - [facility] Urine Glucose (UA) June 05, 2014 3:27pm [...] Has specimen been collected/obtained? Y Urine Specific [place] June 05, 2014 3:27pm <=1.005 L - [...] Prob. Contaminants Name: NORA FERGUSON Unit #: [id number] : 1980 Sex: F Loc / Svc: ED DOS: 06/05/14 Signed Report #: [id number] DIAGNOSTIC IMAGING REPORT TYPE OF EXAM: CT [...] ADDON completed 06/05/14 TX/PRO/DX INJ SAME DRUG GEOSCIENCES PROFESSOR completed 06/05/14 EMERGENCY DEPT VISIT completed 06/05/14884642"INJECTION, CEFTRIAXONE SODIUM, PER 250 MG" completed 06/05/14366989"INJECTION, HYDROMORPHONE, UP TO 4 MG" completed 06/05/14"INJECTION, HYDROMORPHONE, UP TO 4 MG" completed 06/05/14"INJECTION, INSULIN, PER 5 UNITS" completed 06/05/14519955"INJECTION, KETOROLAC TROMETHAMINE, PER 15 MG" completed 06/05/14"INJECTION, ONDANSETRON HYDROCHLORIDE, PER 1 MG" completed 06/05/14"INFUSION, NORMAL SALINE SOLUTION , 1000 CC" completed 06/05/14251670"INFUSION, NORMAL SALINE SOLUTION , 1000 CC" completed 06/05/14338379"INFUSION, NORMAL SALINE SOLUTION , 250 CC" completed 06/05/14 Encounters Encounter Location Date/Time Departed Emergency Room [facility] 07/16/14 10:57pm Departed Emergency Room [facility] 06/05/14 3:03pm Recent Diagnosis
--- OUTSIDE RECORDS SUMMARY | 2016-09-13 15:36 | XMS REPORT | Continuity of Care Document ---
Author Author [facility] Organization [facility] Address Unknown Phone Unavailable Support Name Relationship Address Phone THOMASADAM MERCHANT Caregiver [facility] [address] [place] [address] ANGELO COWAN MD Caregiver [address] [place], [place] [phone] JIHAN COWAN Next Of Kin [address] [place], [place] [id number] Insurance Providers Payer Name Policy Number Subscriber Name Relationship [facility] Community Plan [id number] Nora Ferguson 16 Self Advance Directives Directive [...] F (96.8 - 99.1) Temperature (Calculated Celsius) 36.57121 degrees C (36.0 - 37.3) Pulse Rate [...] Report December 14, 2011 4:21pm REFERENCE LAB [id number] - Lipase August 22, 2013 9:10pm 107 [...] 12, 2011 6:30pm Sent out - [facility] Urine Glucose (UA) June 05, [...] Has specimen been collected/obtained? Y Urine Specific [place] June 05, 2014 3:27pm <=1.005 L - [...] Prob. Contaminants Name: NORA FERGUSON Unit #: [id number] : 1980 Sex: F Loc / Svc: ED DOS: 06/05/14 Signed Report #: [id number] DIAGNOSTIC IMAGING REPORT TYPE OF EXAM: CT [...] Encounters Encounter Location Date/Time Departed Emergency Room [facility] 06/05/14 3:03pm Recent Diagnosis
== END 2016-09-13 15:31 | disposition home or self-care (01) ==
LOC: ED 12:54
DX: G43.909 Migraine, unspecified, not intractable, without status migrainosus (principal); R10.11 Right upper quadrant pain; R11.0 Nausea; R50.9 Fever, unspecified
CPT/HCPCS: 80053; 83690; 85025; 96361; 96374; 96375; 96376; 99284; J1170; J2405; J7030

== ENCOUNTER 2017-04-17 17:05 | Inpatient (IN) ==
[2017-04-17] MEDS ORDERED: NS 1,000 ML IV ONE (17:19)
--- NOTE | 2017-04-17 17:23 | Emergency Department Report ---
General Adult HPI - General Stated complaint: fell hit head confused lethargic Time Seen by Provider: 04/17/17 17:07 Source: patient Mode of arrival: ambulatory Limitations: no limitations - History of Present Illness HPI narrative: She lives in her own home with her family. This morning around 11 am they found her on the floor in her room. They state that she must have fallen overnight. Has had decreased LOC throughout the day. They have gotten her to drink some and have assisted her with walking to the bathroom but she has not been responding as well and she did have an episode of incontinence as well. She does take narcotics at home but they do not believe that she has had any since last night. She has not had a fever at home. Noted b/p of 70 systolic upon arrival to ER. She does move all extremities but keeps her eyes closed and does not answer questions. They had checked her BGM prior to coming to Er and it was in the 200s. Onset (ago): hour(s) Severity: moderate Relieving factors: none Exacerbating factors: none Associated symptoms: weakness Treatments prior to arrival: none - Related Data Home Medications Medication Instructions Recorded Confirmed Spironolactone 25 mg PO HS #0 06/05/14 04/17/17 Lisinopril 10 mg PO DAILY #0 02/07/15 04/17/17 CloNIDine [Catapres] 0.1 mg PO HS 01/04/17 04/17/17 Insulin Aspart [Novolog Flexpen] 62 unit SQ TIDWM 01/04/17 04/17/17 Insulin Degludec *U100* [Tresiba 112 unit SQ HS 01/04/17 04/17/17 Flextouch U-100 Pen] Methocarbamol [Robaxin] 750 mg PO TID PRN 01/04/17 04/17/17 Omeprazole 40 mg PO HS 01/04/17 04/17/17 Oxycodone HCl/Acetaminophen 1 tab PO Q6H PRN 01/04/17 04/17/17 [Percocet 10-325 mg Tablet] Pregabalin Cap [Lyrica] 150 mg PO TID 01/04/17 04/17/17 Quetiapine Fumarate 400 mg PO HS 01/04/17 04/17/17 Rizatriptan Benzoate [Rizatriptan] 10 mg PO BID PRN 01/04/17 04/17/17 Trazodone [Desyrel] 300 mg PO HS 01/04/17 04/17/17 Venlafaxine HCl [Venlafaxine HCl 300 mg PO HS 01/04/17 04/17/17 ER] clonazePAM [Clonazepam] 2 mg PO TID 01/04/17 04/17/17 Amitriptyline [Elavil] 25 mg PO HS 04/17/17 04/17/17 Celecoxib [Celecoxib] 200 mg PO BID 04/17/17 04/17/17 Diazepam [Valium] 5 mg PO BID PRN 04/17/17 04/17/17 Docusate Sodium 250 mg PO 1200 04/17/17 04/17/17 Fluconazole [Diflucan] 150 mg PO WEEKLY 04/17/17 04/17/17 LORazepam [Lorazepam] 1 mg PO Q6H PRN 04/17/17 04/17/17 Lidocaine/Prilocaine [EMLA 30gm] 1 applicatio TOP PRN PRN 04/17/17 04/17/17 Magnesium Citrate 100 mg PO 1200 04/17/17 04/17/17 Morphine Sulfate *SR* [Ms Contin] 30 mg PO Q12H 04/17/17 04/17/17 Potassium 99 mg PO DAILY 04/17/17 04/17/17 Sennosides/Docusate Sodium 1 tab PO BID PRN 04/17/17 04/17/17 [Senna-S Tablet] Topiramate [Topiramate] 25 mg PO TID 04/17/17 04/17/17 Allergies Allergy/AdvReac Type Severity Reaction Status Date / Time codeine Allergy Unknown DIFFICULTY Verified 04/17/17 17:11 BREATHING doxycycline Allergy Unknown ITCHING/BEV Verified 04/17/17 17:11 H liraglutide Allergy Unknown NAUSEA Verified 04/17/17 17:11 metformin Allergy Unknown NAUSEA Verified 04/17/17 17:11 Sulfa (Sulfonamide Allergy Unknown HIVES Verified 04/17/17 17:11 Antibiotics) Review of Systems Constitutional: Denies: fever, chills, weakness ENT: Denies: ear pain, throat pain, congestion Cardiovascular: Denies: chest pain, palpitations, dyspnea on exertion, edema Respiratory: Denies: cough, dyspnea, wheezes Gastrointestinal: Denies: abdominal pain, nausea, vomiting, diarrhea Integumentary: Denies: rash Neurological: Denies: headache, weakness, numbness, paresthesias PFS Patient Stated Medical History Migraine Yes: Hx Diabetes Mellitus Type 2 Yes Gastroesophageal Reflux Yes Disease Hiatal Hernia Yes Ulcer Yes Other Musculoskeletal Yes: Fibromylagia Depression Yes Post Menopausal Yes Now No Clinic Medical History (Last Reviewed 12/06/16 @ 15:39 by Jhon Anderson MD) Sepsis (Acute Medical) Diabetes mellitus type 2, uncontrolled, without complications (Chronic Medical ~ 2012) Had better control with Tresiba, but it is not on formulary. Will try to get from [facility]. 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 Trigeminal neuralgia of right side of face (Inactive Medical) Surgical History: Tubal ligation; Hernia x 2; Gallbladder; Hysterectomy; Family History: Family History (Last Reviewed 12/06/16 @ 15:39 by John Anderson MD) Mother Diabetes Maternal Grandfather Diabetes Father Cancer - Social History Smoking status: Current every day smoker Substance use type: does not use Alcohol intake frequency: does not drink Physical Exam - Limitations Limitations: no limitations - General General appearance: alert, in no apparent distress - Normal Exams: Head:: Normocephalic without trauma Eyes:: Pupils are PERRLA w/ EOMI, No scleral icterus, irritation, or foreign bodies noted ENMT:: No facial trauma, nasal exudates, pharyngeal erythema, or exudates are noted Neck:: Full range of motion, without adenopathy, JVD, bruits or thyromegaly Chest/Respirations:: Clear all rosado, with good airflow, and symmetry bilaterally Cardiovascular:: Regular rate and rhythm, without murmur or gallop, Pulses 2+ all extremities, capillary refill, <2 seconds all extremities Abdomen:: Bowel sounds positive, soft, non-tender, non-distended, no hepatosplenomegaly, masses or bruits noted Lymphatic:: No lymphadenopathy, or lymphedema noted Integumentary:: No rashes, hives, or bruising noted - Expanded Neurological Exam Coma scale motor response: localizes to pain Coma scale verbal response: confused Course Vital Signs Blood Pressure 70/41 04/17/17 17:15 Temperature 98.2 F 04/17/17 17:22 Pulse Rate 89 04/17/17 22:00 Respiratory Rate 18 04/17/17 22:00 Blood Pressure 80/53 04/17/17 21:15 Pulse Oximetry 96 04/17/17 22:00 Medical Decision Making - MDM Narrative Medical decision making narrative: WBC is elevated with bandemia. Lactate elevated at 3.1. Did initiate 30ml/kg fluid bolus while in ER and gave 1 GM Rocephin IV. B/p were improving to upper 80s but when sat up for chest xray did come back down to 70s systolic. Second line was initiated. Did attempt to get UA by straight cath but patient did not have any urine in her bladder. Will place mckeon to DD in attempt at UA and UDS. She is responding verbally to questions but remains sleepy. Chest xray is clear. Discussed findings with Dr العلي and he will admit to CCU for sepsis. She does remain afebrile while in ER. - Differential Diagnosis DD: sepsis, overdose, ICH - Lab Data Lab results reviewed: Yes: I reviewed the patient's lab results. Result diagrams: 04/17/17 17:28 04/17/17 17:28 Lab Results 04/17/17 04/17/17 04/17/17 Range/Units 17:27 17:27 17:28 WBC 15.4 H (4.5-11.0) T/MM3 RBC 4.72 (4.00-5.20) M/MM3 Hgb 14.8 (12-16) GM/DL Hct 44.0 (36-46) % MCV 93.2 (80-100) UM3 MCH 31.4 (26-34) UUG MCHC 33.6 (31-37) GM/DL RDW Std Deviation 41.7 (36.9-50.2) FL Plt Count 165 (130-400) T/MM3 MPV 12.9 H (9.4-12.4) UM3 Immature Gran % (Auto) Not performed Neut % (Auto) Not performed Lymph % (Auto) Not performed Richardson % (Auto) Not performed Eos % (Auto) Not performed Baso % (Auto) Not performed Neut # (Auto) Not performed Lymph # (Auto) Not performed Richardson # (Auto) Not performed Eos # (Auto) Not performed Baso # (Auto) Not performed Abs Immat Gran (auto) Not performed Neutrophils % (Manual) 72.0 H (33-66) % Band Neutrophils % 15.0 H (0-6) % Lymphocytes % (Manual) 7.0 L (23-45) % Monocytes % (Manual) 5.0 (0-9.0) % Metamyelocytes % 1.0 H (0-0) % Neutrophils # (Manual) 11.1 H (1.8-7.7) T/MM3 Band Neutrophils # 2.3 T/MM3 Lymphocytes # (Manual) 1.1 (1-4.8) T/MM3 Monocytes # (Manual) 0.8 (0-0.8) T/MM3 Metamyelocytes # 0.2 T/MM3 RBC Morph Comment Normal Turbidity (0-20) Sodium (134-144) MEQ/L Potassium (3.6-5) MEQ/L Chloride (98-107) MEQ/L Carbon Dioxide (22-30) MEQ/L Anion Gap (5-15) MEQ/L BUN (7-17) MG/DL Creatinine (0.7-1.2) MG/DL GFR Calculation BUN/Creatinine Ratio (6-26) RATIO Glucose (65-110) MG/DL Calculated Osmolality (261-280) MOSM/KG Calcium (8.4-10.2) MG/DL Total Bilirubin (0.20-1.30) MG/DL Icterus Index (0-7) AST (14-36) U/L ALT (9-52) U/L Alkaline Phosphatase (38-126) U/L Creatine Kinase 716 H (30-135) U/L Troponin I (0-0.12) ng/ml Total Protein (6.3-8.2) G/DL Albumin (3.5-5.0) G/DL Globulin (2.4-3.6) G/DL Albumin/Globulin Ratio (1.1-2.2) RATIO Plasma Lactate 3.1 H (0.6-2.2) MMOL/L Procalcitonin NG/ML Specimen Hemolysis (0-25) Salicylates (2-20) MG/DL Acetaminophen (10-30) UG/ML Alcohol, Quantitative (<10) MG/DL 04/17/17 04/17/17 Range/Units 17:28 17:28 WBC (4.5-11.0) T/MM3 RBC (4.00-5.20) M/MM3 Hgb (12-16) GM/DL Hct (36-46) % MCV (80-100) UM3 MCH (26-34) UUG MCHC (31-37) GM/DL RDW Std Deviation (36.9-50.2) FL Plt Count (130-400) T/MM3 MPV (9.4-12.4) UM3 Immature Gran % (Auto) Neut % (Auto) Lymph % (Auto) Richardson % (Auto) Eos % (Auto) Baso % (Auto) Neut # (Auto) Lymph # (Auto) Richardson # (Auto) Eos # (Auto) Baso # (Auto) Abs Immat Gran (auto) Neutrophils % (Manual) (33-66) % Band Neutrophils % (0-6) % Lymphocytes % (Manual) (23-45) % Monocytes % (Manual) (0-9.0) % Metamyelocytes % (0-0) % Neutrophils # (Manual) (1.8-7.7) T/MM3 Band Neutrophils # T/MM3 Lymphocytes # (Manual) (1-4.8) T/MM3 Monocytes # (Manual) (0-0.8) T/MM3 Metamyelocytes # T/MM3 RBC Morph Comment Turbidity < 20 (0-20) Sodium 143 (134-144) MEQ/L Potassium 4.3 (3.6-5) MEQ/L Chloride 108 H (98-107) MEQ/L Carbon Dioxide 22 (22-30) MEQ/L Anion Gap 13 (5-15) MEQ/L BUN 21.0 H (7-17) MG/DL Creatinine 1.9 H (0.7-1.2) MG/DL GFR Calculation 30 BUN/Creatinine Ratio 11 (6-26) RATIO Glucose 308 H (65-110) MG/DL Calculated Osmolality 290 H (261-280) MOSM/KG Calcium 9.1 (8.4-10.2) MG/DL Total Bilirubin 0.50 (0.20-1.30) MG/DL Icterus Index < 2 (0-7) AST 40 H (14-36) U/L ALT 39 (9-52) U/L Alkaline Phosphatase 96 (38-126) U/L Creatine Kinase (30-135) U/L Troponin I 0.113 (0-0.12) ng/ml Total Protein 7.8 (6.3-8.2) G/DL Albumin 4.0 (3.5-5.0) G/DL Globulin 3.8 H (2.4-3.6) G/DL Albumin/Globulin Ratio 1.1 (1.1-2.2) RATIO Plasma Lactate (0.6-2.2) MMOL/L Procalcitonin 1.88 NG/ML Specimen Hemolysis < 15 (0-25) Salicylates < 1.0 L (2-20) MG/DL Acetaminophen < 10 L (10-30) UG/ML Alcohol, Quantitative <10 (<10) MG/DL - Radiology Data Radiology results reviewed: Yes: I reviewed the patient's radiology results. CT head: no acute intracranial abnormality Disposition Clinical Impression: Sepsis Qualifiers: Sepsis type: sepsis due to unspecified organism Qualified Code(s): A41.9 - Sepsis, unspecified organism Disposition: To [facility] [place] Acute Care Condition: Stable Time of Disposition: 19:58 - Seen By: midlevel
[2017-04-17] MEDS: SALINE FLUSH 10ml SYRINGE IVF PRN (17:30)
[2017-04-17] MEDS ORDERED: CEFTRIAXONE (ER USE ONLY) 1 GM in NS 100 ML IV ONE (18:10)
[2017-04-17] MEDS: NS 1,000 ML IV SCH ×4 (19:02→22:22)
--- NOTE | 2017-04-17 20:20 | History & Physical Report ---
History of Present Illness Date: 04/18/17 Chief complaint: Altered mental status, weak, ? fall HPI: Nora is a 36 y/o w/ h/o HTN, DM, chronic pain w/ narcotics and benzodiazepine use, depression on multiple medications who [place] [facility] [place] family d/t concerns re: mental status changes, weakness and being found on the floor of her bedroom at approx 1100 today. Patient lives in her own home with her family(daughter and ) and they brought her to the ER concerned that she fell out of bed last night, and then found her on floor today around 11 AM. Patient tells me that she tried to get out of bed at some time last night and slipped to the ground off the bed and did feel like she "bumped" her head on the box spring. She felt too weak to get up and stayed on the floor until found in the AM. Per report, she has demonstrated decreased level of consciousness during the day - has been able to drink some but overall decreased po intake and not as responsive as she normally is. Patient reported to have an episode of bowel and bladder incontinence as well while on the floor overnight. She does take narcotics at home but they do not believe that she has had any since last night and states the meds are in a lock box. She has not had a fever at home. Patient denies dyspnea, chest pain, SOA, cough, f/c/s or n/v but did have some diarrhea and the bladder incontinence w/i past 24 hours. Noted b/p of 70 systolic upon arrival to ER. She does move all extremities but keeps her eyes closed and does not answer questions. They had checked her BGM prior to coming to Er and it was in the 200s. Patient in ER had CT head which was negative. CXR and EKG reported as no acute issues per prelim read, and troponin 0.113. Patient Lactate = 3.1, WBC = 15.4 w/ 15% bands; UA and UDS pending; Acetaminophen/ASA/EtOH levels were unrmearkable. Galloway placed, Rocephin 1g IV and Vancomycin 1g IV x one given; CK 716. Procalcitonin 1.88. Patient started on IVFs bolus of 30 cc/kg. SBPs have been in the 70s-80s range, pulse in 90s and regular, Sats 93% on RA and patient has been afebrile. Cr = 1.9, BUN = 21. Patient to be admitted to the ICU on the Hospitalist service for further evaluation and management. Review of Systems All systems PM: 10-point ROS was reviewed, no additional remarkable complaints except PFSH Patient Stated Medical History Migraine Yes: Hx Diabetes Mellitus Type 2 Yes Gastroesophageal Reflux Yes Disease Hiatal Hernia Yes Ulcer Yes Other Musculoskeletal Yes: Fibromylagia Depression Yes Post Menopausal Yes Now No Clinic Medical History (Last Reviewed 12/06/16 @ 15:39 by John Anderson MD) Sepsis (Acute Medical) Diabetes mellitus type 2, uncontrolled, without complications (Chronic Medical ~ 2012) Had better control with Tresiba, but it is not on formulary. Will try to get from [facility]. 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 Trigeminal neuralgia of right side of face (Inactive Medical) Medical History Updates: Recent "hot knife" therapy for her trigeminal neuralgia Surgical History: Tubal ligation; Hernia x 2; Gallbladder; Hysterectomy; Family History: Family History (Last Reviewed 12/06/16 @ 15:39 by John Anderson MD) Mother Diabetes Maternal Grandfather Diabetes Father Cancer - Social History Smoking status: Current every day smoker Housing: house Household members: spouse, family Medications Home Medications Medication Instructions Recorded Confirmed Type Spironolactone 25 mg PO HS #0 06/05/14 04/17/17 History Lisinopril 10 mg PO DAILY #0 02/07/15 04/17/17 History CloNIDine [Catapres] 0.1 mg PO HS 01/04/17 04/17/17 History Insulin Aspart [Novolog Flexpen] 62 unit SQ TIDWM 01/04/17 04/17/17 History Insulin Degludec *U100* [Tresiba 112 unit SQ HS 01/04/17 04/17/17 History Flextouch U-100 Pen] Methocarbamol [Robaxin] 750 mg PO TID PRN 01/04/17 04/17/17 History Omeprazole 40 mg PO HS 01/04/17 04/17/17 History Oxycodone HCl/Acetaminophen 1 tab PO Q6H PRN 01/04/17 04/17/17 History [Percocet 10-325 mg Tablet] Pregabalin Cap [Lyrica] 150 mg PO TID 01/04/17 04/17/17 History Quetiapine Fumarate 400 mg PO HS 01/04/17 04/17/17 History Rizatriptan Benzoate [Rizatriptan] 10 mg PO BID PRN 01/04/17 04/17/17 History Trazodone [Desyrel] 300 mg PO HS 01/04/17 04/17/17 History Venlafaxine HCl [Venlafaxine HCl 300 mg PO HS 01/04/17 04/17/17 History ER] clonazePAM [Clonazepam] 2 mg PO TID 01/04/17 04/17/17 History Amitriptyline [Elavil] 25 mg PO HS 04/17/17 04/17/17 History Celecoxib [Celecoxib] 200 mg PO BID 04/17/17 04/17/17 History Diazepam [Valium] 5 mg PO BID PRN 04/17/17 04/17/17 History Docusate Sodium 250 mg PO 1200 04/17/17 04/17/17 History Fluconazole [Diflucan] 150 mg PO WEEKLY 04/17/17 04/17/17 History LORazepam [Lorazepam] 1 mg PO Q6H PRN 04/17/17 04/17/17 History Lidocaine/Prilocaine [EMLA 30gm] 1 applicatio TOP PRN PRN 04/17/17 04/17/17 History Magnesium Citrate 100 mg PO 1200 04/17/17 04/17/17 History Morphine Sulfate *SR* [Ms Contin] 30 mg PO Q12H 04/17/17 04/17/17 History Potassium 99 mg PO DAILY 04/17/17 04/17/17 History Sennosides/Docusate Sodium 1 tab PO BID PRN 04/17/17 04/17/17 History [Senna-S Tablet] Topiramate [Topiramate] 25 mg PO TID 04/17/17 04/17/17 History Allergies Allergy/AdvReac Type Severity Reaction Status Date / Time codeine Allergy Unknown DIFFICULTY Verified 04/17/17 17:11 BREATHING doxycycline Allergy Unknown ITCHING/BEV Verified 04/17/17 17:11 H liraglutide Allergy Unknown NAUSEA Verified 04/17/17 17:11 metformin Allergy Unknown NAUSEA Verified 04/17/17 17:11 Sulfa (Sulfonamide Allergy Unknown HIVES Verified 04/17/17 17:11 Antibiotics) Exam Vital Signs: Temperature 98.2 F 04/17/17 17:22 Pulse Rate 98 04/17/17 17:45 Respiratory Rate 14 04/17/17 17:45 Blood Pressure 79/79 04/17/17 17:45 Pulse Oximetry 96 04/17/17 17:45 Telemetry Rhythm: Sinus Rhythm Height/Weight/BMI: Height 1.73 m Weight 114.3 kg - Constitutional Present: no acute distress, well nourished, well developed - Routine HEENT Exam Head: Present: normocephalic, atraumatic Eye: Present: EOMI, PERRL. Absent: scleral injection ENT: Present: mucous membranes dry - Routine Neck Exam Present: supple, full ROM. Absent: JVD - Routine Respiratory Exam Present: CTA bilaterally - Routine Cardiovascular Exam Present: RRR - Routine Abdominal Exam Present: soft, normoactive bowel sounds, non distended, non tender - Routine Extremities Exam Absent: cyanosis, clubbing, edema - Routine Skin Exam Present: intact - Routine Neurological Exam Present: alert, oriented X3 Patient sitting up in bed, able to answer most questions, some supplemented by her who is in the room at the time of the visit. At times a little slow to answer the question. - Routine Psychiatric Exam Present: normal affect Results - Labs CBC & Chem 7: 04/18/17 04:09 04/18/17 04:09 Microbiology Results: Microbiology 04/17/17 17:28 Peripheral/Iv Start Blood Culture - Preliminary Culture Initiated - Results Pending 04/17/17 17:35 Peripheral/Iv Start Blood Culture - Preliminary Culture Initiated - Results Pending Assessment and Plan Assessment and Plan: Assessment: 1) Acute Encephalopathy - etiology unclear - presumed infectious at this time vs. other etiology. 2) Acute SIRS/likely Sepsis w/ hypotension and SILVER, elevated WBCs w/ bandemia 3) Acute Hypotension 4) SILVER - last Cr from November of 2016 was 0.79 4a) Acute Rhabdomyolysis - elevated CK, found on floor this AM - not known how long but likely several hours 5) DM Insulin requiring - poorly controlled - last A1C = 12 in November 2016 6) GERD 7) H/o Depression and Chronic pain on multiple medications including chronic opioids and benzodiazepines - no report of OD per family 8) HTN - currently hypotensive 9) Fibromyalgia history 10) H/o migraine HAs 11) HLD/Dyslipidemia - Very high TGs in November of 2016 Plan: Admit to CCU Telemetry SCDs Protonix IV 40mg daily Vancomycin/Zosyn initially, may add Levaquin Pharmacy to dose Vancomycin UA and UDS pending Labs in AM - CBC, Mg, BMP, troponin, CK Lactate - auto repeat Continue IVFs until 30 cc/kg bolus done, then NS at 125 mL/hour Blood Cx pending Hold home meds - prn MSO4 for pain if needed and patient's encephalopathy and BP improving ICU care Correctional Insulin w/ accuchecks prn and ac and hs Clears if patient able to tolerate and follow commands and if encephalopathy resolving/resolved Stool studies pending I discussed the plan of care w/ the patient and patient's and they verbalized understanding. DVT Prophylaxis: SCD's GI Prophylaxis: Protonix Resuscitation Status: Full Code - Physician Narriative Physician: Keshia Valentine MD Narriative: 04/18/17 20:11 Dr. العلي's note reviewed. Mrs. Arita interviewed and examined. Supplemental history provided by her daughter. CC: Weakness/fall/confusion HPI: Mrs. Portillo is 36-year-old female with a history of chronic pain and agoraphobia who uses of multiple narcotics and benzodiazepine medications. She reports that that she has been lightheaded and dizzy for a couple of weeks. She denied nausea or vomiting, diarrhea (reportedly constipation typically due to narcotic use), or impaired oral intake. Her daughter reports the patient has not been taking liquids or food well because she sleeps most of the time due to medications. She feels her mother has been getting progressively more dehydrated over time. The patient attempted to get out of bed overnight and slipped but was too weak to get up on her own. She remained on the floor overnight until her fianc found her around 11 AM yesterday morning. Patient reported that she had diarrhea several times while she was on the floor and that she laid in feces during this time. She specifically denies loss of consciousness but thinks she bumped her head slightly. Family reported variable level of consciousness during the day which did not really improve through the course of the day and subsequently she presented to the emergency room overnight. Family is not aware of any fever prior to presentation but reports she did have urinary incontinence in addition to diarrhea while on the floor. On arrival in the emergency room the patient's systolic blood pressure was 70. The patient did not respond to questions verbally initially; blood sugar per EMS was above 200. CT head was without acute change. Lactic acid 3.1 with elevated white count. Fluids were initiated in addition to antibiotics and patient was admitted to the intensive care unit. Overnight C. difficile was reported positive and oral vancomycin was initiated. PH/SH/FH: agree with that recorded above with additional history of chronic anxiety/agoraphobia and recent psychiatric hospitalization. Patient additionally has a history of polycystic ovary disease. She has had both ovaries removed in separate surgical procedures and has had a microvascular decompression of the right facial nerve and a right facial nerve ablation for management of trigeminal neuralgia. She most recently had CyberKnife treatment of the facial nerve and is scheduled for second CyberKnife treatment in the near future. Finally she reports prior appendectomy. Family history additionally positive for father dying of lung cancer, one brother with diabetes, grandfather with pancreatic cancer and alive after 12 years of the malignancy. Social history-patient continues to smoke roughly 1 pack of cigarettes daily but denies illicit drug use or alcohol use. Dr. Oswald Ramachandran is her primary care physician, she is a full code, her daughter Catherine Garcia as her alternate decision maker. She sees Dr. John Anderson for management of diabetes, Dr. Armstrong for neurosurgery, and Dr. Berumen for radiation oncology ROS: 10 point review as per Dr. العلي EXAM: General-NAD, awake but slow verbal responses; 98.3 123/86 HEENT-PERRL, EOMI without nystagmus, conjunctiva clear, sclera anicteric, conjugate gaze, facial structures symmetric, oropharynx clear, neck supple and without adenopathy Lungs-respirations nonlabored, fair airflow, breath sounds clear Cardiac-regular rhythm, S1-S2 Abd-obese, soft, nontender, bowel sounds present Ext-without edema Skin-without generalized rash or wounds Neuro-facial structure symmetric, EOMI, tongue midline; sensation intact to light touch 4 extremities, patient moves all extremities spontaneously, no tremors present Psych-flat affect, psychomotor retardation DATA: White count 15.4-11.9, 15% bands on presentation; hemoglobin 13.6. Electrolytes unremarkable on admission, creatinine 1.9-1.1 following initial hydration. A.m. blood sugar 129. CPK [id number], troponin 0.113-0.058 Lactic acid 3.1-1.2; for calcitonin 1.88 UA concentrated, +3 glucose, trace ketones, trace protein Stool positive for C. difficile Chest x-ray reviewed by myself NAD; CT head reviewed by myself without acute pathology, encephalomalacia in the right cerebellar hemisphere possibly due to prior ischemic insult or surgical change. Mild cortical atrophy. A/P: C. difficile colitis/sepsis Encephalopathy Hypotension Dehydration Ambulatory dysfunction with falls Acute kidney injury Diabetes mellitus Polysubstance use History hypertension Fibromyalgia Trigeminal neuralgia Migraines Depression/anxiety disorder Dyslipidemia/hypertriglyceridemia Patient presents with multiple criteria consistent with sepsis including elevated lactic acid, leukocytosis, bandemia, hypotension requiring high volume fluid resuscitation, encephalopathy, tachycardia, and tachpnea. She was started on antibiotics empirically but converted to oral vancomycin when C. difficile was identified as cause of sepsis. With fluid resuscitation blood pressure has stabilized and I believe patient can safely transfer out of the ICU this morning. Home medications will be partially resumed; there will need to be further clarification of some medications as her home list includes several different narcotics and 3 different benzodiazepines in addition to several psychiatric medications. Continue IV fluids with addition of potassium. Hospital Course Summary Disclaimer: The visit summary below is not to be considered part of the above Progress Note.
[2017-04-17] MEDS ORDERED: ONDANSETRON 4 MG/2 ML INJECTION IVP PRN (20:29)
[2017-04-17] MEDS ORDERED: LACRI-LUBE EYE OINT 3.5gm EACH EYE PRN (20:29)
[2017-04-17] MEDS ORDERED: BISACODYL 10 MG SUPPOSITORY RECTALLY PRN (20:29)
[2017-04-17] MEDS ORDERED: DEXTROSE 50% SYRINGE 50ml (1 AMP) IVP PRN (20:39)
[2017-04-17] MEDS ORDERED: GLUCOSE ORAL GEL 40% 37.5gm PO PRN (20:39)
--- NOTE | 2017-04-17 21:28 | XRay Report ---
E EXAM: XR chest 1V HISTORY: sepsis COMPARISON: Prior examination dated 09/18/2015 FINDINGS: A single portable AP view of the chest was performed. The lung rosado are relatively hypoventilated. The heart appears upper limits of normal size which is likely artifactual due to the hypoventilated state. The trachea is midline. The pulmonary vascularity is normal. There are increased interstitial markings at the lung bases likely reflecting atelectasis but no acute consolidating infiltrates are seen. The costophrenic angles are clear. The bony thorax is stable. There is artifact from cardiac monitoring lead wires over the chest. IMPRESSION: 1. The lung rosado are hypoventilated and there are increased interstitial markings at the bases likely reflecting atelectasis. 2. The cardiac silhouette appears upper limits of normal size likely artifactual owing to the hypoventilated state. .
[2017-04-17] MEDS: INSULIN ASPART 100unit/ml INJECTION SQ PRN (21:35)
[2017-04-17] MEDS: PANTOPRAZOLE 40 MG INJECTION IVP SCH (21:35)
[2017-04-17] MEDS: PIPERACILLIN/TAZOBACTAM 3.375 GM in NS 100 ML IV SCH (21:52)
[2017-04-17 22:14] VITALS: BMI 39.1
[2017-04-18] MEDS: PIPERACILLIN/TAZOBACTAM 3.375 GM in NS 100 ML IV SCH (03:04)
[2017-04-18] MEDS: SALINE FLUSH 10ml SYRINGE IVF PRN ×2 (04:12→05:46)
[2017-04-18] MEDS: MORPHINE SULFATE 2mg INJECTION IVP PRN ×2 (04:12→08:31)
[2017-04-18] MEDS ORDERED: BENZOCAINE/MENTHOL SORE THROAT LOZENGE MM PRN (05:18)
[2017-04-18] MEDS: NS 1,000 ML IV SCH ×3 (05:29→21:32)
[2017-04-18] MEDS ORDERED: MORPHINE SULFATE 2mg INJECTION IVP ONE (05:42)
[2017-04-18] MEDS: INSULIN ASPART 100unit/ml INJECTION SQ PRN ×3 (05:56→20:58)
[2017-04-18] MEDS: PANTOPRAZOLE 40 MG INJECTION IVP SCH (08:31)
[2017-04-18] MEDS: VANCOMYCIN 250mg/5ml ORAL LIQ PO SCH ×3 (08:46→20:41)
[2017-04-18] MEDS ORDERED: LIDOCAINE 2.5%/PRILOCAINE 2.5% CREAM 30gm TOP PRN (11:16)
[2017-04-18] MEDS ORDERED: LORazepam 1 MG TABLET PO PRN (11:16)
[2017-04-18] MEDS: INSULIN ASPART 100unit/ml INJECTION SQ SCH ×2 (14:22→17:30)
[2017-04-18] MEDS ORDERED: CLONAZEPAM 2 MG PO SCH (15:00)
[2017-04-18] MEDS: ClonazePAM 1 MG TABLET PO SCH ×2 (15:05→20:40)
[2017-04-18] MEDS: PREGABALIN 150 MG CAPSULE PO SCH ×2 (15:05→20:40)
[2017-04-18] MEDS: TOPIRAMATE 25 MG TABLET PO SCH ×2 (15:05→20:40)
--- NOTE | 2017-04-18 18:34 | CT Scan Report ---
EXAM: Noncontrast CT scan of the head was( HISTORY: fall, decreased level of consciousness COMPARISON: Prior examination dated 05/30/2015 Contiguous axial images of the brain without intravenous contrast were performed. The current CT scan was performed using radiation dose-reduction techniques. There is mild cortical atrophy. The ventricles are midline and appear normal in size and configuration demonstrating no evidence of mass effect or midline shift. Normal ramos-white matter differentiation is seen and there is no evidence of acute intracranial hemorrhage or acute transcortical infarct. No extra-axial masses or fluid collections are identified. There is mild periventricular white matter hypoattenuation likely reflecting chronic small vessel ischemic change. The visualized bony shows postsurgical changes of a right occipital craniectomy. There is encephalomalacia in the peripheral aspect of the right cerebellar hemisphere may be due to prior ischemic insult or postsurgical change. The paranasal sinuses are clear. IMPRESSION: 1. No CT evidence of acute intracranial process.. 2. Postsurgical changes of prior right occipital craniectomy. 3. Encephalomalacia in the right cerebellar hemisphere that may be due to prior ischemic insult or postsurgical change. 4. Mild cortical atrophy and mild periventricular white matter chronic small vessel ischemic change. .
[2017-04-18] MEDS: CELECOXIB 200 MG CAPSULE PO SCH (20:40)
[2017-04-18] MEDS: 1/2 NS with KCL 20mEq 1,000 ML IV SCH (20:59)
[2017-04-18] MEDS ORDERED: AMITRIPTYLINE 25 MG TABLET PO SCH (21:00)
[2017-04-18] MEDS ORDERED: SPIRONOLACTONE 25 MG TABLET PO SCH (21:00)
[2017-04-18] MEDS ORDERED: OMEPRAZOLE 20 MG CAPSULE PO SCH (21:00)
[2017-04-18] MEDS ORDERED: INSULIN GLARGINE 100unit/ml INJECTION SQ SCH (21:00)
[2017-04-18] MEDS ORDERED: TRAZODONE 100 MG TABLET PO SCH (21:00)
[2017-04-19] MEDS: VANCOMYCIN 250mg/5ml ORAL LIQ PO SCH ×2 (02:39→10:17)
[2017-04-19] MEDS: CELECOXIB 200 MG CAPSULE PO SCH (10:18)
[2017-04-19] MEDS: 1/2 NS with KCL 20mEq 1,000 ML IV SCH (10:18)
[2017-04-19] MEDS: ClonazePAM 1 MG TABLET PO SCH (10:19)
[2017-04-19] MEDS: PREGABALIN 150 MG CAPSULE PO SCH (10:19)
[2017-04-19] MEDS: TOPIRAMATE 25 MG TABLET PO SCH (10:19)
[2017-04-19] MEDS: INSULIN ASPART 100unit/ml INJECTION SQ SCH ×2 (10:21→13:53)
[2017-04-19 12:16] VITALS: BP 131/90; PULSE 64; RESP 18; TEMP 96.6; O2SAT 99
--- NOTE | 2017-04-19 17:03 | Discharge Summary ---
Discharge Information Date of admission: 04/17/17 20:08 Anticipated date of discharge: 04/19/17 Attending Physician: Keshia Valentine MD Primary care physician: Rl Cowan MD - Discharge Diagnosis (1) C. difficile colitis Status: Acute (2) Sepsis Status: Resolved C. difficile colitis with sepsis Encephalopathy Hypotension Dehydration Ambulatory dysfunction with falls Acute kidney injury Diabetes mellitus Polysubstance use History hypertension Fibromyalgia Trigeminal neuralgia Migraines Depression/anxiety disorder Dyslipidemia/hypertriglyceridemia - Laboratory Labs: On admission white count was 15.4 with 72 neutrophils, 15 bands; hemoglobin 14.8. Admission blood sugar 308, CPK 716, troponin 0.113, lactic acid 3.1 dropping to 1.2 in 5 hours. Urine drug screen positive for opiates, oxycodone, tricyclic antidepressants, benzodiazepines. C. difficile toxin PCR positive 04/19/17 03:57 04/19/17 03:57 - Microbiology Blood cultures 2 negative at discharge - Radiology Radiology: Chest x-ray on admission demonstrated hypoventilation with basilar atelectasis, heart size borderline enlarged but may be artifactual due to hypoventilation. CT head on 04/17/17: There is mild cortical atrophy. The ventricles are midline and appear normal in size and configuration demonstrating no evidence of mass effect or midline shift. Normal ramos-white matter differentiation is seen and there is no evidence of acute intracranial hemorrhage or acute transcortical infarct. No extra-axial masses or fluid collections are identified. There is mild periventricular white matter hypoattenuation likely reflecting chronic small vessel ischemic change. The visualized bony shows postsurgical changes of a right occipital craniectomy. There is encephalomalacia in the peripheral aspect of the right cerebellar hemisphere may be due to prior ischemic insult or postsurgical change. The paranasal sinuses are clear. IMPRESSION: 1. No CT evidence of acute intracranial process.. 2. Postsurgical changes of prior right occipital craniectomy. 3. Encephalomalacia in the right cerebellar hemisphere that may be due to prior ischemic insult or postsurgical change. 4. Mild cortical atrophy and mild periventricular white matter chronic small vessel ischemic change. History of Present Illness HPI: Nora is a 36 y/o w/ h/o HTN, DM, chronic pain w/ narcotics and benzodiazepine use, depression on multiple medications who presents to ED at [facility] [place] brought by family d/t concerns re: mental status changes, weakness and being found on the floor of her bedroom at approx 1100 today. Patient lives in her own home with her family(daughter and fianc) and they brought her to the ER concerned that she fell out of bed last night, and then found her on floor today around 11 AM. Patient tells me that she tried to get out of bed at some time last night and slipped to the ground off the bed and did feel like she "bumped" her head on the box spring. She felt too weak to get up and stayed on the floor until found in the AM. Per report, she has demonstrated decreased level of consciousness during the day - has been able to drink some but overall decreased po intake and not as responsive as she normally is. Patient reported to have an episode of bladder incontinence as well while on the floor overnight and several episodes of diarrhea. She does take narcotics at home but they do not believe that she has had any since last night and rosemary states the meds are in a lock box. She has not had a fever at home. Patient denies dyspnea, chest pain, SOA, cough , f/c/s or n/v but did have some diarrhea and the bladder incontinence w/i past 24 hours. Noted b/p of 70 systolic upon arrival to ER. She does move all extremities but keeps her eyes closed and does not answer questions. They had checked her BGM prior to coming to Er and it was in the 200s. Patient in ER had CT head which was negative. CXR and EKG reported as no acute issues per prelim read, and troponin 0.113. Patient Lactate = 3.1, WBC = 15.4 w/ 15% bands; UA and UDS pending; Acetaminophen/ASA/EtOH levels were unrmearkable. Galloway placed, Rocephin 1g IV and Vancomycin 1g IV x one given; CK 716. Procalcitonin 1.88. Patient started on IVFs bolus of 30 cc/kg. SBPs have been in the 70s-80s range, pulse in 90s and regular, Sats 93% on RA and patient has been afebrile. Cr = 1.9, BUN = 21. Patient to be admitted to the ICU on the Hospitalist service for further evaluation and management. Hospital Course This is a general summary of the patient's hospital course. For more details refer to the complete medical record. Hospital course: Impression C. difficile colitis/sepsis (leukocytosis, bandemia, hypotension, encephalopathy , acute kidney injury) Encephalopathy Hypotension-POA, resolved Dehydration Ambulatory dysfunction with falls Acute kidney injury-POA, resolved; creatinine 1.9-1.1-0.8 Diabetes mellitus Polysubstance use History hypertension Fibromyalgia Trigeminal neuralgia Migraines Depression/anxiety disorder Dyslipidemia/hypertriglyceridemia Hospital course Julissa was admitted to the intensive care unit with encephalopathy and sepsis/ hypotension. Infectious etiology was suspected and broad-spectrum antibiotics were initiated although they were discontinued within several hours after C. difficile toxin was reported positive. Oral vancomycin was initiated and IV antibiotics discontinued. Fluid resuscitation was initiated on admission with normalization of blood pressure within a couple of hours. The patient remained groggy on the morning of 04/18 but by the was fully alert. Diarrhea subsided quickly with treatment of C. difficile and she described having formed stools on the . She was afebrile throughout the hospital course and the leukocytosis seen on admission resolved by discharge. The patient is maintaining fair oral intake at discharge. Given rapid response to antibiotic therapy for C. difficile of elected to convert from vancomycin to metronidazole to complete 2 week course of treatment. On the day of discharge the patient reported having formed stools and no nausea , dyspnea, or palpitations. She reports her appetite isn't great but indicated that it never is. Galloway catheter was removed yesterday and she's been able to void without difficulty since that time. On examination the patient was alert and much more conversant than yesterday. She was in no distress. Respirations are nonlabored with diminished air flow but breath sounds are clear. Abdomen is soft and nontender with bowel sounds present. Patient is felt stable for discharge at this time to continue metronidazole for treatment of C. difficile. Home medications were reviewed in detail as the initial list included a number of duplicate meds-for example clonazepam and lorazepam and Valium. There is residual uncertainty about some doses which I've asked that the patient discuss further when she follows up with Dr. Cowan in the near future. Ultimately there was no modification in her chronic medications. It is noted that she is currently using Toujeo until Tresiba insulin becomes available. Metronidazole was prescribed for an additional 12 days to complete 2 weeks of therapy for C. diff. The patient is asked to follow-up with Dr. Cowan in approximately one week and to schedule follow-up with Dr. 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 Time spent with patient: discharge greater than 30 minutes Discharge Plan - Med Rec/Dispo Referrals/Follow Up: Rl Cowan MD [Family Provider] - 1 Week (APPOINTMENT WITH DR COWAN 04/27 AT 11:00.) Truven Instructions: Infectious Colitis (GEN) Prescriptions: New MetroNIDAZOLE [Flagyl] 500 mg PO TIDWM #36 tab Continue Lisinopril 10 mg PO DAILY #0 Insulin Aspart [Novolog Flexpen] 62 unit SQ TIDWM Omeprazole 40 mg PO HS Venlafaxine HCl [Venlafaxine HCl ER] 300 mg PO HS Methocarbamol [Robaxin] 750 mg PO TID PRN PRN Reason: Prn Orders Rizatriptan Benzoate [Rizatriptan] 10 mg PO BID PRN PRN Reason: Migraine Headache Quetiapine Fumarate 400 mg PO HS Oxycodone HCl/Acetaminophen [Percocet 10-325 mg Tablet] 1 tab PO Q6H PRN PRN Reason: Pain CloNIDine [Catapres] 0.1 mg PO HS Insulin Degludec *U100* [Tresiba Flextouch U-100 Pen] 112 unit SQ HS Potassium 99 mg PO DAILY Magnesium Citrate 100 mg PO 1200 Celecoxib 200 mg PO BID Amitriptyline [Elavil] 25 mg PO HS Morphine Sulfate *SR* [Ms Contin] 30 mg PO Q12H Diazepam [Valium] 5 mg PO BID PRN PRN Reason: Prn Orders Spironolactone 25 mg PO HS #0 Pregabalin Cap [Lyrica] 150 mg PO TID Trazodone [Desyrel] 300 mg PO HS Sennosides/Docusate Sodium [Senna-S Tablet] 1 tab PO BID PRN PRN Reason: Constipation Lidocaine/Prilocaine [EMLA 30gm] 1 applicatio TOP PRN PRN PRN Reason: Prn Orders Topiramate 25 mg PO TID Changed clonazePAM [Clonazepam] 1 mg PO BID #0 Fluconazole [Diflucan] 150 mg PO WEEKLY PRN #0 PRN Reason: yeast infection Discontinued LORazepam [Lorazepam] 1 mg PO Q6H PRN PRN Reason: Anxiety Docusate Sodium 250 mg PO 1200 - Disposition 01 Discharged Home, Self-Care
[2017-04-19] MEDS ORDERED: MetroNIDAZOLE 500 MG TABLET PO SCH (17:30)
[2017-04-19] MEDS ORDERED: QUETIAPINE 100 MG TABLET PO SCH (21:00)
[2017-04-19] MEDS ORDERED: ClonazePAM 1 MG TABLET PO SCH (21:00)
== END 2017-04-19 16:35 | disposition home or self-care (01) | DRG 871 ==
LOC: ED 17:05 → CCU 20:20 → MED 04-18 15:48
PROVIDERS: ADMIT Internal Medicine; ATTEND Internal Medicine